=== PATIENT | male | born 1970 | race Caucasian/White ===

== ENCOUNTER 2019-09-14 16:29 | Emergency (ER) | payer OTHER, SELFPAY ==
[2019-09-14 16:36] VITALS: BP 145/89; PULSE 97; RESP 18; TEMP 37.2; O2SAT 97
--- NOTE | 2019-09-14 16:36 | ED.SKABFB ---
HPI - Skin/Abscess/Foreign Bdy General Chief complaint: Skin/Abscess/Foreign Body Stated complaint: boil on buttocks Time Seen by Provider: 09/14/19 16:36 Source: patient and RN notes reviewed Mode of arrival: ambulatory Limitations: no limitations History of Present Illness HPI narrative: Pt is a 49 y/o male who is a nonsmoker/nondrinker that presents to the with c/o skin eruption to lt inner gluteal cheek without ongoing drainage or streaking for about 3 days. He states that he s tried to pop it and only made it bigger. Pt has never had an eruption similar to this in the past. He has a H/o AODM; reports 4/10 pain when sitting down, declines I & D . MD complaint: abscess/boil Onset (ago): day(s) (3) Location: buttocks (lt inner gluteal cheek) Severity scale (1-10): 4 Associated symptoms: denies other symptoms Related Data Home Medications Medication Instructions Recorded Confirmed irbesartan 300 mg tablet 300 mg PO DAILY 05/20/19 09/14/19 loratadine 10 mg tablet 10 mg PO DAILY 05/20/19 09/14/19 lovastatin 40 mg tablet 40 mg PO DAILY 05/20/19 09/14/19 metformin 500 mg tablet,extended 2,000 mg PO DAILY tablet 05/20/19 09/14/19 release 24 hr multivitamin,jl-ukjx-epgidpqm 1 tablet PO DAILY 05/20/19 09/14/19 omeprazole 20 mg capsule,delayed 20 mg PO DAILY 05/20/19 09/14/19 release sildenafil (pulm.hypertension) 20 100 mg PO ONCE tablet 05/20/19 09/14/19 mg tablet valacyclovir 500 mg tablet 500 mg PO DAILY 05/20/19 09/14/19 Allergies Allergy/AdvReac Type Severity Reaction Status Date / Time bupropion AdvReac Unknown Unknown Verified 09/14/19 16:43 Review of Systems Review of Systems: Narrative: General/Constitutional: No weight loss,fever Eyes: N0: Redness,discharge Ears/Nose/Throat: No: Epistaxis,ear discharge Respiratory: Denies: Hemoptysis Gastrointestinal: No Vomiting, Bleeding-rectal Skin: Reports skin eruption to lt inner gluteal cheek with 4/10 pain while sitting PMFSH Past Medical History Medical History Diabetes type 2, controlled GERD (gastroesophageal reflux disease) Hyperlipidemia Hypertension Multiple adenomatous polyps Surgical History Surgical History History of appendectomy Social History Social History Smoking status: Never smoker Alcohol intake: current Comments At time of signature, agree with nursing past medical, surgical, social and family history. There is no relevant family history pertinent to the presenting complaint Exam Narrative: Exam Narrative: General : Obese/ appearing, Well nourished, Conjunctiva clear Ears: Auditory canal normal, TM normal Nose: Rhinorrhea, Mucousal erythema Mouth/Throat: MM moist, supple, No adenopathy Musculoskeletal: Non tender, Normal strength Skin: Warm, Dry; 2cm area of induration gluteal cheek w/o fluctuance, streaking Neurological: A&O x3,, Normal affect Course Vital Signs Vital signs: Vital Signs Temperature 99 F 09/14/19 16:36 Pulse Rate 97 09/14/19 16:36 Respiratory Rate 18 09/14/19 16:36 Blood Pressure 145/89 H 09/14/19 16:36 Pulse Oximetry 97 09/14/19 16:36 Temperature 99 F 09/14/19 16:36 Pulse Rate 97 09/14/19 16:36 Respiratory Rate 18 09/14/19 16:36 Blood Pressure 145/89 H 09/14/19 16:36 Pulse Oximetry 97 09/14/19 16:36 Discharge Plan Discharge Clinical Impression: Folliculitis Patient Disposition: Home, Self-Care Condition: Stable Instructions: Antibiotic Form, MRSA (Methicillin-Resistant Staphylococcus Aureus) (ED), Folliculitis (ED) Additional Instructions: stop clindamycin for diarrhea Prescriptions: New clindamycin HCl 300 mg capsule 300 mg PO Q6H Qty: 30 RF: 0 mupirocin 2 % ointment 1 applic TOPICAL TID Qty: 30 RF: 0 No Action valacyclovir 500 mg tablet 500 mg PO DAILY R
== END 2019-09-14 17:00 | disposition home or self-care (01) ==
PROVIDERS: Emergency Provider Emergency Medicine; PCP Family Medicine
DX: L73.9 Follicular disorder, unspecified (principal); E11.9 Type 2 diabetes mellitus without complications; K21.9 Gastro-esophageal reflux disease without esophagitis; E78.5 Hyperlipidemia, unspecified; I10 Essential (primary) hypertension
CPT/HCPCS: 99213; G0463

== ENCOUNTER 2020-05-05 19:52 | Inpatient (IN) | payer OTHER, SELFPAY ==
--- NOTE | ~2020-05-05 | XR_ITS ---
EXAMINATION: XR chest 1V portable EXAM DATE: 05/10/2020 06:21 INDICATION: COVID-19 pneumonia . TECHNIQUE: Portable AP frontal chest x-ray was obtained. Comparison is made to prior examination from 05/09, 05/07/2020. FINDINGS: There is rather extensive bilateral airspace disease, most likely reaction to acute infecti ous process given history provided. No pneumothorax or pleural effusion. Cardiomediastinal silhouette is normal. There are no osseous abnormalities identified. There is no significant interval change. IMPRESSION: Diffuse acute bilateral airspace disease, clinical correlation. LINE REPAIRER Reviewed, dictated and finalized at location A.
--- NOTE | ~2020-05-05 | XR_ITS ---
EXAMINATION: XR chest 1V portable EXAM DATE: 05/11/2020 06:26 INDICATION: COVID-19 pneumonia. TECHNIQUE: Portable AP frontal chest x-ray was obtained. Comparison is made to prior examination from 05/10, 05/09, 05/07/2020. FINDINGS: There is rather extensive bilateral airspace disease, most likely reaction to acute infecti ous process given history provided. No pneumothorax or pleural effusion. Cardiomediastinal silhouette is normal. There are no osseous abnormalities identified. There is no significant interval change. IMPRESSION: Diffuse acute bilateral airspace disease, clinical correlation. Reviewed, dictated and finalized at location A. S SUPPORT ASSISTANT
--- NOTE | ~2020-05-05 | XR_ITS ---
EXAMINATION: XR chest 1V portable DATE: 05/05/2020 20:30 INDICATION: Shortness of breath. Cough. COVID-19 positive. TECHNIQUE: A single frontal view of the chest was obtained on 2 radiographs. COMPARISON: Chest 2 views 09/27/2017 FINDINGS: There are patchy airspace opacities in all lung zones bilaterally. No pleural effusion or p neumothorax. The heart size is normal. IMPRESSION: 1. Diffuse lung disease, consistent with pneumonia. Reviewed, dictated and finalized at location A. F GRINDER AND SCREENER
--- NOTE | ~2020-05-05 | XR_ITS ---
EXAMINATION: XR chest 1V portable EXAM DATE: 05/09/2020 06:22 INDICATION: Pneumonia. COVID-19 TECHNIQUE: Portable AP frontal chest x-ray was obtained. Comparison is made to prior examination from 05/07/2020. FINDINGS: There is rather extensive bilateral airspace disease, most likely reaction to acute infecti ous process given history provided. No pneumothorax or pleural effusion. Cardiomediastinal silhouette is normal. There are no osseous abnormalities identified. There is no significant interval change. IMPRESSION: Rather extensive acute bilateral airspace disease, clinical correlation. Reviewed, dictated and finalized at location A. ARCH AIDE IMPRESSION: Rather extensive acute bilateral airspace disease, clinical correl ation.
--- NOTE | ~2020-05-05 | XR_ITS ---
EXAMINATION: XR chest 1V portable EXAM DATE: 05/13/2020 06:38 INDICATION: COVID-19 pneumonia . TECHNIQUE: Portable AP frontal chest x-ray was obtained. Comparison is made to prior examination from 05/12, 05/11, 05/10. FINDINGS: There is extensive bilateral ground glass opacities with linear regions of confluence, most likely acute infectious process given history provided. No pneumothorax or pleural effusion. Cardiom ediastinal silhouette is normal. There are no osseous abnormalities identified. There is no significant interval change. IMPRESSION: Diffuse acute bilateral airspace disease, clinical correlation. AND BACK FORGER Reviewed, dictated and finalized at location A.
--- NOTE | ~2020-05-05 | XR_ITS ---
EXAMINATION: XR chest 1V portable EXAM DATE: 05/12/2020 06:10 INDICATION: COVID-19 pneumonia TECHNIQUE: Portable AP frontal chest x-ray was obtained. Comparison is made to prior examination from 05/11. FINDINGS: There is extensive bilateral ground glass opacities with regions of confluence, most likely acute infectious process given history provided. No pneumothorax or pleural effusion. Cardiomediasti nal silhouette is normal. There are no osseous abnormalities identified. There is no significant interval change. IMPRESSION: Diffuse acute bilateral airspace disease, clinical correlation. Reviewed, dictated and finalized at location A. AGE LINER
--- NOTE | ~2020-05-05 | XR_ITS ---
EXAMINATION: XR chest 1V portable INDICATION: COVID 19 pneumonia TECHNIQUE: Portable AP chest at 0818 hours COMPARISON: 05/13/2020 FINDINGS: Diffuse bilateral interstitial and airspace opacities persist without significant change. T here is mild elevation of the right hemidiaphragm. No pleural effusion or pneumothorax is identified. The cardiomediastinal silhouette is stable. IMPRESSION: 1. Stable diffuse lung disease, consistent with pneumonia and/or pulmonary edema and/or acute respira tory distress syndrome (ARDS). Reviewed, dictated and finalized at location A. IFIER IMPRESSION: 1. Stable diffuse lung disease, consistent with pneumonia and/or pulmonary nancy a and/or acute respiratory distress syndrome (ARDS).
--- NOTE | ~2020-05-05 | XR_ITS ---
EXAMINATION: XR chest 1V portable INDICATION: Hypoxia TECHNIQUE: Portable AP chest at 0618 hours COMPARISON: 05/05/2020 FINDINGS: There are patchy airspace opacities in all lung zones which demonstrate interval worsening. There is no pleural effusion or pneumothorax. The cardiomediastinal silhouette is normal. IMPRESSION: 1. Diffuse lung disease with interval worsening, consistent with pneumonia and/or pulmonary edema and /or acute respiratory distress syndrome (ARDS). Reviewed, dictated and finalized at location A. IDENT + PUBLISHER IMPRESSION: 1. Diffuse lung disease with interval worsening, consistent with pneumonia and/ or pulmonary edema and/or acute respiratory distress syndrome (ARDS).
--- NOTE | 2020-05-05 19:54 | ECG_ITS ---
Measurements Intervals [place] Rate: 96 P: 39 TX: 168 QRS: 41 QRSD: 108 T: -5 QT: 355 QTc: 449 Interpretive Statements SINUS RHYTHM NONSPECIFIC T-WAVE ABNORMALITY- INFERIOR LEADS BORDERLINE ECG Electronically Signed On 05-06-2020 6:48:26 CHIEF LOCK OPERATOR by Heath Purvis D.O.
[2020-05-05 19:55] VITALS: BP 166/88; PULSE 99; RESP 15; TEMP 37.4; O2SAT 93
[2020-05-05 20:42] LABS: Basophils Percent Auto 0.1 % (0.2-1.2); Hematocrit 37.7 % (42.0-52.0); Hemoglobin 13.1 g/dL (14.0-18.0); Immature Granulocyte Absolute 0.05 K/mm3 (0.00-0.031); Immature Granulocyte Percent A 0.6 % (0-0.5); Lymphocytes Absolute Auto 0.69 K/mm3 (0.9-3.2); Lymphocytes Percent Auto 8.4 % (18.3-44.2); Mean Corpuscular HGB Conc 34.7 g/dl (32-36); Mean Corpuscular Hemoglobin 30.6 pg (26-34); Mean Corpuscular Volume 88.1 fl (80-100); Mean Platelet Volume 9.3 fl (7.4-10.4); Monocytes Absolute Auto 0.4 K/mm3 (0.1-0.6); Monocytes Percent Auto 4.3 % (2.6-8.5); Neutrophils Absolute Auto 7.1 K/mm3 (1.3-6.7); Neutrophils Percent Auto 86.6 % (45.5-73.1); Platelet Count Result 165 k/mm3 (150-375); Red Blood Count 4.28 M/mm3 (4.6-6.20); Red Cell Distribution Width 12.4 % (11.5-14.5); White Blood Count 8.2 K/mm3 (4.5-10.0)
--- NOTE | 2020-05-05 20:49 | ED.GENADULT ---
HPI - General Adult General Chief complaint: Upper Respiratory Infection Stated complaint: resp distress, covid+ Time Seen by Provider: 05/05/20 19:58 Source: patient Mode of arrival: ambulatory Limitations: no limitations History of Present Illness HPI narrative: 50-year-old with a history of hypertension here with complaints of shortness of breath for past few days. Patient states that he had upper respiratory symptoms l approximately a week ago , and a Covid test 2 days ago which came back positive . Patient states that for the last few hours he has been getting extremely short of breath even with minimal ambulation. He presently denies any fever however he states that few days ago he had a high fever, body aches. He denies any chest pain., Nausea or vomiting. His cough is nonproductive. Patient upon arrival to the ER and SPO2 of 88% Onset (ago): day(s) (2) Severity: moderate Pain Consistency: constant Exacerbating factors: movement Associated symptoms: cough and shortness of breath Related Data Home Medications Medication Instructions Recorded Confirmed multivitamin,po-uddg-bvjbkftb 1 tablet PO DAILY 05/20/19 09/14/19 valacyclovir 500 mg tablet 500 mg PO DAILY 05/20/19 10/20/19 loratadine 10 mg tablet 10 mg PO DAILY PRN 10/20/19 10/20/19 Allergies Allergy/AdvReac Type Severity Reaction Status Date / Time bupropion AdvReac Unknown Unknown Verified 05/05/20 20:00 Review of Systems Review of Systems: All systems reviewed & are unremarkable except as noted in HPI and below Constitutional: Constitutional: Reports as per HPI ENT: Reports as per HPI Cardiovascular: Cardiovascular: Reports as per HPI Respiratory: Respiratory: Reports as per HPI Gastrointestinal: Gastrointestinal: Reports no additional gastrointestinal complaints Musculoskeletal: Musculoskeletal: Reports no additional musculoskeletal complaints [facility] Past Medical History Medical History Abnormal fasting glucose Asymptomatic microscopic hematuria COVID-19 Diabetes type 2, controlled Elevated blood lead level Encounter for prostate cancer screening GERD (gastroesophageal reflux disease) Hyperlipidemia Hypertension Multiple adenomatous polyps Obstructive sleep apnea Surgical History Surgical History History of appendectomy Family History Family History Grandparent Diabetes mellitus Family history of cardiovascular disease Family history of Alzheimer's disease, Onset Age: 82 Family history of dementia Mother Hypertension Patient's mother is in good health Father Family history of elevated blood lipids Social History Social History (Updated 04/26/20 @ 10:53 by Moira Moseley MA) Years smoked: 20 Smoking status: Former smoker ( quit smoking 2014) Tobacco type: cigarettes Smoking end date: 10/29/14 Alcohol intake: current Drinks per week: 3 Substance use: never Gender identity (if verbalized by the patient): Male Exam Narrative: Exam Narrative: GENERAL: Well-appearing, well-nourished, and in no acute distress.anxious HEAD: Normocephalic, atraumatic. EYES: PERRLA and EOMI. NECK: Supple. CHEST: Clear to auscultation. No respiratory distress. HEART: Regular rate and rhythm. No murmur heard. Normal peripheral pulses. ABDOMEN: Soft, nontender, nondistended, normal active bowel sounds. EXTREMITIES: Normal range of motion. No edema. SKIN: Warm, dry, no rash. NEURO: No focal deficits. Alert and oriented x3. PSYCH: Normal mood and affect. Course Course Emergency Course: Inform patient about his lab work, chest x-ray findings. His O2 saturations are 91 to 92% when he is resting. Will admit to the hospital as his SPO2 drops down to 88% with ambulation. I discussed with Dr. Sanderson recommended to start Decadron and and is R remdesivir and Decadron
[2020-05-05 20:51] LABS: INR 0.9; Prothrombin Time 12.8 Seconds (11.1-14.7)
[2020-05-05 20:52] LABS: Partial Thromboplastin Time 27.9 SECONDS (22.3-36.8)
[2020-05-05 20:54] LABS: Lactic Acid Reflex 2.5 mmol/L (0.7-2.1)
[2020-05-05 20:56] LABS: Alanine Aminotransferase 69 U/L (4-50); Alkaline Phosphatase 78 U/L (38-126); Anion Gap 12 mmol/L (8-16); Aspartate Amino Transferase 71 U/L (17-59); Bilirubin,Total 0.6 mg/dL (0.2-1.3); Blood Urea Nitrogen 14 mg/dL (9-20); CRP 2.6 mg/dL (<1.0); Calcium 9.2 mg/dL (8.4-10.2); Carbon Dioxide 22 mmol/L (22-30); Chloride 105 mmol/L (98-107); Estimated CRCL calculation 147 ml/min; Estimated Glomerular Filt Rate > 60; Glucose 371 mg/dL (75-110); Potassium 4.2 mmol/L (3.4-5.0); Sodium 139 mmol/L (137-145)
[2020-05-05 21:05] VITALS: O2SAT 91
[2020-05-05 21:45] VITALS: BP 155/68; PULSE 92; RESP 15; TEMP 36.8; O2SAT 93
[2020-05-05 21:54] VITALS: BP 151/88; PULSE 98; RESP 18; O2SAT 94
--- NOTE | 2020-05-05 22:05 | PC.NURSE ---
This patient, Matthias Smith, was admitted to [facility] Surg Room 329-01. Patient/family oriented to hospital policies and general routines including ID bracelet, bed and alarms, visiting hours, pain management, procedures, bathroom and other care routines, personal items, smoking policy, room service/diet, and visiting hours. Information on how to activate the Rapid Response Team has been discussed. Patient/Family are encouraged to report perceived risks to care and to ask questions if they do not understand what they are told or what they should do.
[2020-05-05 22:15] VITALS: BP 163/75; PULSE 99; RESP 18; TEMP 36.4; O2SAT 94
[2020-05-05 22:25] VITALS: PULSE 99; RESP 18; O2SAT 94
[2020-05-05 22:54] VITALS: BMI 36.5
[2020-05-05] MEDS: SODIUM CHLORIDE 0.9% IV 1,000 ML 75 ML IV CONT (22:54)
[2020-05-05] MEDS: REMDESIVIR 200 MG/NS 250 ML 200 MG/250 ML BAG 250 MG IVPB (22:54)
[2020-05-05 23:39] LABS: Reflex Lactic Acid Yes or No Add Lactic
[2020-05-06] VITALS (10 sets, daily range): BP systolic 129–152; BP diastolic 70–90; PULSE 87–91; RESP 18–20; TEMP 36.4–37; O2SAT 90–94
[2020-05-06 00:13] LABS: Lactic Acid 2.3 mmol/L (0.7-2.1)
--- NOTE | 2020-05-06 00:57 | PM.IMHP ---
H&P: HPI History of Present Illness Date/Time: 05/06/20 00:57 Chief complaint: COVID Pneumonia Narrative: This is a pleasant 50 year old Diabetic male with known history of HTN and GERD who presented to the hospital with increased shortness of breath over the past few days. The patient started to have a cough about 1 week ago and after developing fever the next day he decided to get tested for COVID-19. His COVID-19 test came back positive 2 days ago. Since then he has started to notice that he is getting more short of breath while ambulating and needs to sit down to catch his breath. He denies any known sick contacts and isn't sure how he contracted COVID-19. Tonight the patient complains of body aches, a nonproductive cough, and shortness of breath but denies any nausea, vomiting, chest pain, palpitations, abdominal pain, dysuria, or rectal bleeding. The patient was found to desaturate down to the high 80s when ambulating in the ER. The patient was admitted for further care and treated with antibiotics, steroids, and remdesivir. On my encounter with the patient he is on 2L of oxygen and in no acute distress. Review of Systems Review of Systems: All systems reviewed & are unremarkable except as noted in HPI and below PMFSH Past Medical History Medical History Abnormal fasting glucose Asymptomatic microscopic hematuria COVID-19 Diabetes type 2, controlled Elevated blood lead level Encounter for prostate cancer screening GERD (gastroesophageal reflux disease) Hyperlipidemia Hypertension Multiple adenomatous polyps Obstructive sleep apnea Surgical History Surgical History History of appendectomy Family History Family History Grandparent Diabetes mellitus Family history of cardiovascular disease Family history of Alzheimer's disease, Onset Age: 82 Family history of dementia Mother Hypertension Patient's mother is in good health Father Family history of elevated blood lipids Social History Social History Years smoked: 20 Smoking status: Former smoker Tobacco type: cigarettes Smoking end date: 10/29/14 Alcohol intake: current Drinks per week: 4 Substance use: never Gender identity (if verbalized by the patient): Male Spiritual care concerns: No Meds Home Medications and Allergies Home Medications Medication Instructions Recorded Confirmed Type multivitamin,qt-gtpd-ghgwntno 1 tablet PO DAILY 05/20/19 05/05/20 History loratadine 10 mg tablet 10 mg PO DAILY PRN 10/20/19 05/05/20 History irbesartan 300 mg tablet 300 mg PO DAILY #90 tablet 04/26/20 05/05/20 Rx lovastatin 40 mg tablet 40 mg PO DAILY #90 tablet 04/26/20 05/05/20 Rx metformin 500 mg tablet,extended 2,000 mg PO DAILY #360 tablet 04/26/20 05/05/20 Rx release 24 hr omeprazole 20 mg capsule,delayed 20 mg PO DAILY #90 cap 04/26/20 05/05/20 Rx release sildenafil (pulm.hypertension) 20 100 mg PO ONCE PRN #90 tablet 04/26/20 05/05/20 Rx mg tablet Allergies Allergy/AdvReac Type Severity Reaction Status Date / Time bupropion AdvReac Unknown Hypertensio Verified 05/05/20 22:24 n Vital Signs Vital Signs - 24 hr 05/05/20 19:55 05/05/20 21:05 05/05/20 21:45 Temperature 37.4 C 36.8 C Pulse Rate 99 92 Respiratory Rate 15 15 Blood Pressure 166/88 H 155/68 H Pulse Oximetry 93 91 93 05/05/20 21:54 05/05/20 22:15 05/05/20 22:25 Temperature 36.4 C Pulse Rate 98 99 99 Respiratory Rate 18 18 18 Blood Pressure 151/88 H 163/75 H Pulse Oximetry 94 94 94 Exam Const: General: cooperative, alert, awake and ill appearing Nutritional Appearance: obese Orientation/consciousness: patient oriented x3 HENMT: Head: normal to inspection General nose exam: Normal external nose present Face and
[2020-05-06 06:28] LABS: Basophils Percent Auto 0.1 % (0.2-1.2); Hematocrit 35.9 % (42.0-52.0); Hemoglobin 12.3 g/dL (14.0-18.0); Lymphocytes Absolute Auto 0.87 K/mm3 (0.9-3.2); Lymphocytes Percent Auto 8.6 % (18.3-44.2); Mean Corpuscular HGB Conc 34.3 g/dl (32-36); Mean Corpuscular Hemoglobin 30.4 pg (26-34); Mean Corpuscular Volume 88.6 fl (80-100); Mean Platelet Volume 9.2 fl (7.4-10.4); Monocytes Absolute Auto 0.5 K/mm3 (0.1-0.6); Monocytes Percent Auto 5.1 % (2.6-8.5); Neutrophils Absolute Auto 8.6 K/mm3 (1.3-6.7); Neutrophils Percent Auto 85.2 % (45.5-73.1); Platelet Count Result 171 k/mm3 (150-375); Red Blood Count 4.05 M/mm3 (4.6-6.20); Red Cell Distribution Width 12.4 % (11.5-14.5); White Blood Count 10.1 K/mm3 (4.5-10.0)
[2020-05-06 06:37] LABS: Lactic Acid Reflex 1.7 mmol/L (0.7-2.1)
[2020-05-06 06:37] LABS: Alveolar/Arterial O2 Gradient 222.3 mmHg; Base Excess ABG -3.8 mEq/l (+/-2.0); Device NASAL CANNULA; Fractional Inspired Oxygen 44 %; HCO3 ABG 19.2 mEq/l (22.0-26.0); Modified Allen's Test Pass; Oxygen Content ABG 18.1 %vol (16.0-22.0); Oxygen Saturation ABG 91.2 % (95.0-100.0); Oxyhemoglobin 90.2 % THb (90.0-100.0); PCO2 ABG 29.6 mmHg (35.0-45.0); PO2 ABG 57.7 mmHg (80.0-100.0); PO2 FiO2 Ratio Arterial Blood 1.31 %; Site Drawn LEFT RADIAL; Total Hemoglobin 14.3 g/dL (12.0-18.0)
[2020-05-06 06:42] LABS: Alanine Aminotransferase 73 U/L (4-50); Albumin Level 3.7 g/dL (3.5-5.1); Alkaline Phosphatase 67 U/L (38-126); Anion Gap 10 mmol/L (8-16); Aspartate Amino Transferase 65 U/L (17-59); Bilirubin,Total 0.5 mg/dL (0.2-1.3); Blood Urea Nitrogen 16 mg/dL (9-20); Carbon Dioxide 21 mmol/L (22-30); Chloride 108 mmol/L (98-107); Estimated CRCL calculation 147 ml/min; Estimated Glomerular Filt Rate > 60; Glucose 245 mg/dL (75-110); Potassium 4.1 mmol/L (3.4-5.0); Sodium 139 mmol/L (137-145)
[2020-05-06] MEDS: ALBUTEROL SULFATE (*SP) INHALER 1 PUFF (07:47)
[2020-05-06] MEDS: ALBUTEROL SULFATE (*SP) AEROSOL 1 PUFF 2 PUFF INHALATION ×3 (07:47→19:59)
[2020-05-06] MEDS: DEXAMETHASONE SOD PHOS INJ 4 MG/ML VIAL 6 MG IV PUSH (08:08)
[2020-05-06] MEDS: INSULIN ASPART (*BKC) 100 UNITS/ML SUB-Q ×2 (08:09→12:27)
[2020-05-06] MEDS: metFORMIN HCL XR 500 MG TAB.SR.24H 2000 MG PO (08:11)
[2020-05-06] MEDS: LOVASTATIN 20 MG TABLET 40 MG PO (08:12)
[2020-05-06] MEDS: IRBESARTAN 150 MG TABLET 300 MG PO (08:12)
[2020-05-06] MEDS: LORATADINE 10 MG TABLET PO (08:12)
[2020-05-06] MEDS: THERAPEUTIC MULTIVITAMINS/MINERALS TAB (*BKC) 1 TABLET PO (08:12)
[2020-05-06] MEDS: PANTOPRAZOLE 40 MG TABLET PO (08:12)
[2020-05-06] MEDS: guaiFENesin/DEXTROMETHORPHAN 10 ML UDC PO (08:13)
[2020-05-06 09:05] LABS: Glucose Point of Care 221 (65-105)
[2020-05-06] MEDS: ENOXAPARIN 40 MG/0.4 ML SYRINGE SUB-Q ×2 (11:24→20:05)
[2020-05-06 11:57] LABS: Glucose Point of Care 224 (65-105)
--- NOTE | 2020-05-06 12:22 | PM.IMPN ---
Progress Note: A&P Assessment and Plan (1) Pneumonia due to COVID-19 virus: Code(s): U07.1 - COVID-19; J12.89 - Other viral pneumonia Status: Acute Assessment and Plan: The patient reported symptoms started 04/28. He tested positive for COVID 05/03. Dyspnea worsened. He was hypoxic on presentation to the emergency department and requiring 2 liters initially. He is now on 6.5 liters per nsaal cannula. Continue supplemental oxygen to maintain oxygen saturation of >93% and wean as tolerated. Continue IV antibiotics (started azithromycin outpatient 05/03), dexamethasone (day 09/07 - initiated 05/04 outpatient), remdesivir (day 08/05 - initiated 05/05) bronchodilators, antitussives, mucinex. Sputum culture, pneumococcal antigen, legionella urinary antigen, mycoplasma Ab testing were obtained and are pending. Blood cultures were obtained and are pending. Continue droplet isolation. Add continuous pulse oximetry for closer monitoring of oxygen saturation given increasing oxygen requirements. Monitor acute phase reactants and LFTs closely. (2) Severe sepsis: Code(s): A41.9 - Sepsis, unspecified organism; R65.20 - Severe sepsis without septic shock Status: Acute Assessment and Plan: w/ tachycardia and elevated lactic acid. Source of sepsis is likely secondary to COVID-19. Reflex lactic acid normalized. Continue treatment of COVID-19 as above. Monitor acid-base status. Monitor urine output and hemodynamics. (3) Normocytic anemia: Code(s): D64.9 - Anemia, unspecified Status: Acute Assessment and Plan: Acute vs. chronic. No signs of acute blood loss. Monitor H/H, transfuse prn. Check vitamin B12, folate, iron studies. (4) Elevated lactic acid level: Code(s): R79.89 - Other specified abnormal findings of blood chemistry Status: Resolved Assessment and Plan: Resolved. Likely secondary to sepsis and COVID-19. Reflex lactic acid was normal. (5) Type 2 diabetes mellitus without complication, without long-term current use of insulin: Code(s): E11.9 - Type 2 diabetes mellitus without complications Status: Chronic Assessment and Plan: Blood sugars were reviewed and are acceptable at this time. Monitor closely given dexamethasone therapy. Hold metformin. Continue ACHS glucose monitoring, sliding scale insulin, and hypoglycemia protocol. (6) Essential (primary) hypertension: Code(s): I10 - Essential (primary) hypertension Status: Chronic Assessment and Plan: Blood pressures were elevated yesterday but have improved today. Continue irbesartan. Continue to monitor. (7) Gastro-esophageal reflux disease without esophagitis: Code(s): K21.9 - Gastro-esophageal reflux disease without esophagitis Status: Chronic Assessment and Plan: Continue PPI therapy. (8) Mixed hyperlipidemia: Code(s): E78.2 - Mixed hyperlipidemia Status: Chronic Assessment and Plan: LFTs are very mildly elevated. Will continue lovastatin and monitor CMP daily. Subjective Date/time seen: 05/06/20 12:22 Mr. Smith is a 50 y.o. male with PMH significant for HTN, HLD, T2DM, GERD who is seen in follow-up for COVID-19 pneumonia. He feels like he is breathing a little bit better but he is still short of breath. He got up to walk today and noticed dyspnea on exertion. He is requiring 6.5 liters per nasal cannula. He denies subjective fever and chills. He states he had a lot of coughing initially but cough is more sparse now. He occasionally has dark pearce sputum. He denies hemoptysis. He denies chest pain. He denies leg swelling and calf pain. He notes deep breathing stimulates coughing. He had one loose stool today. He is not having any nausea, vomiting, or diarrhea. Review of Systems Review of Systems: All systems reviewed & are unremarkable except as noted in HPI and below Exam Narrative: Exam Narrati
[2020-05-06 17:43] LABS: Glucose Point of Care 188 (65-105)
[2020-05-06 21:09] LABS: Glucose Point of Care 183 (65-105)
[2020-05-06] MEDS: REMDESIVIR 100 MG/NS 250 ML 100 MG/250 ML BAG 250 MG IVPB (22:00)
[2020-05-07] VITALS (23 sets, daily range): BP systolic 128–150; BP diastolic 84–100; PULSE 78–97; RESP 15–94; TEMP 36.2–36.8; O2SAT 90–98
[2020-05-07 01:02] LABS: Alveolar/Arterial O2 Gradient 369.4 mmHg; Base Excess ABG -2.9 mEq/l (+/-2.0); Carboxyhemoglobin 0.3 % THb (0-2.0); Fractional Inspired Oxygen 64 %; HCO3 ABG 20.3 mEq/l (22.0-26.0); Methemoglobin ABG 0.4 %THb (0-1.5); Oxygen Content ABG 16.1 %vol (16.0-22.0); Oxyhemoglobin 86.2 % THb (90.0-100.0); PO2 ABG 53.1 mmHg (80.0-100.0); PO2 FiO2 Ratio Arterial Blood 0.83 %; Reduced Hemoglobin 13.1 %THb (0-5.0); Total Hemoglobin 13.3 g/dL (12.0-18.0); pH ABG 7.435 (7.350-7.450)
[2020-05-07 01:04] LABS: Device HIGH FLOW NASAL CANN; Modified Allen's Test Pass; Site Drawn LEFT RADIAL
--- NOTE | 2020-05-07 02:31 | PC.NURSE ---
This patient, Matthias Smith, was received from 3rd med/surg on 05/07/20 at 0145. Patient/family oriented to unit policies and routines. Report received from Didi VILLAFUERTE.
--- NOTE | 2020-05-07 03:13 | PC.NURSE ---
This patient, Matthias Smith, was transferred to [ICU ] on 05/07/20 at 0145. Personal belongings sent with patient. Report given to [Ana M]. Appropriate documentation sent with patient.
[2020-05-07 04:58] LABS: Basophils Percent Auto 0.1 % (0.2-1.2); Hematocrit 35.8 % (42.0-52.0); Hemoglobin 12.4 g/dL (14.0-18.0); Immature Granulocyte Absolute 0.11 K/mm3 (0.00-0.031); Immature Granulocyte Percent A 0.9 % (0-0.5); Lymphocytes Absolute Auto 1.25 K/mm3 (0.9-3.2); Lymphocytes Percent Auto 10.7 % (18.3-44.2); Mean Corpuscular HGB Conc 34.6 g/dl (32-36); Mean Corpuscular Hemoglobin 29.7 pg (26-34); Mean Corpuscular Volume 85.9 fl (80-100); Mean Platelet Volume 10.3 fl (7.4-10.4); Monocytes Absolute Auto 0.7 K/mm3 (0.1-0.6); Monocytes Percent Auto 5.6 % (2.6-8.5); Neutrophils Absolute Auto 9.7 K/mm3 (1.3-6.7); Neutrophils Percent Auto 82.7 % (45.5-73.1); Platelet Count Result 151 k/mm3 (150-375); Red Blood Count 4.17 M/mm3 (4.6-6.20); Red Cell Distribution Width 12.4 % (11.5-14.5); White Blood Count 11.7 K/mm3 (4.5-10.0)
[2020-05-07 06:46] LABS: Albumin Level 3.6 g/dL (3.5-5.1); Bilirubin,Total 0.6 mg/dL (0.2-1.3); CRP 2.8 mg/dL (<1.0); Carbon Dioxide 22 mmol/L (22-30); Estimated CRCL calculation 147 ml/min; Estimated Glomerular Filt Rate > 60
[2020-05-07 07:17] LABS: Alanine Aminotransferase 64 U/L (4-50); Alkaline Phosphatase 72 U/L (38-126); Anion Gap 10 mmol/L (8-16); Aspartate Amino Transferase 50 U/L (17-59); Blood Urea Nitrogen 20 mg/dL (9-20); Calcium 9.3 mg/dL (8.4-10.2); Chloride 105 mmol/L (98-107); Creatine Kinase 139 U/L (55-170); Glucose 168 mg/dL (75-110); Lactate Dehydrogenase 1182 U/L (313-618); Potassium 3.9 mmol/L (3.4-5.0); Sodium 137 mmol/L (137-145)
[2020-05-07] MEDS: DEXAMETHASONE SOD PHOS INJ 4 MG/ML VIAL 6 MG IV PUSH (08:45)
[2020-05-07] MEDS: ALBUTEROL SULFATE (*SP) AEROSOL 1 PUFF 2 PUFF INHALATION ×4 (09:03→21:05)
[2020-05-07 09:38] LABS: Glucose Point of Care 169 (65-105)
[2020-05-07] MEDS: ENOXAPARIN 40 MG/0.4 ML SYRINGE SUB-Q ×2 (10:53→20:22)
[2020-05-07] MEDS: ZINC SULFATE 220 MG CAPSULE PO (10:53)
[2020-05-07] MEDS: SACCHAROMYCES BOULARDII 250 MG CAPSULE PO ×2 (10:53→17:06)
[2020-05-07] MEDS: LOVASTATIN 20 MG TABLET 40 MG PO (10:54)
[2020-05-07] MEDS: ASCORBIC ACID 250 MG TABLET PO (10:54)
[2020-05-07] MEDS: CHOLECALCIFEROL 1,000 UNITS TABLET 1000 UNITS PO (10:54)
[2020-05-07] MEDS: IRBESARTAN 150 MG TABLET 300 MG PO (10:54)
[2020-05-07] MEDS: THERAPEUTIC MULTIVITAMINS/MINERALS TAB (*BKC) 1 TABLET PO (10:55)
[2020-05-07] MEDS: PANTOPRAZOLE 40 MG TABLET PO (10:55)
[2020-05-07] MEDS: INSULIN ASPART (*BKC) 100 UNITS/ML SUB-Q ×2 (12:37→17:06)
[2020-05-07 12:40] LABS: Glucose Point of Care 207 (65-105)
[2020-05-07] MEDS: SALINE 0.65% NAS SOLN 44 ML BTL 1 SPRAY NASAL (15:00)
[2020-05-07 17:32] LABS: Glucose Point of Care 220 (65-105)
--- NOTE | 2020-05-07 17:51 | PM.IMPN ---
Progress Note: A&P Assessment and Plan (1) Pneumonia due to COVID-19 virus: Code(s): U07.1 - COVID-19; J12.89 - Other viral pneumonia Status: Acute Assessment and Plan: The patient reported symptoms started 04/28. He tested positive for COVID 05/03. Dyspnea worsened. He was hypoxic on presentation to the emergency department and requiring 2 liters initially. He is now on 6.5 liters per nsaal cannula. Continue supplemental oxygen to maintain oxygen saturation of >93% and wean as tolerated. Continue IV antibiotics (started azithromycin outpatient 05/03), dexamethasone (day 10/08 - initiated 05/04 outpatient), remdesivir (day 09/02 - initiated 05/05) bronchodilators, antitussives, mucinex. Sputum culture, pneumococcal antigen, legionella urinary antigen, mycoplasma Ab testing were obtained and are pending. Blood cultures were obtained and are pending. Continue droplet isolation. Add continuous pulse oximetry for closer monitoring of oxygen saturation given increasing oxygen requirements. Monitor acute phase reactants and LFTs closely. 05/07/20 17:51 patient with COVID pneumonia is feeling little better compared to when he arrived, initially patient was requiring 2 L of oxygen however his symptoms are worsening requiring high-flow oxygen, patient was started on dexamethasone and rendesivir, will continue to monitor the patient if patient's symptoms get worsen and desaturating on high-flow oxygen, will consult account development representative and further recommendation to follow, patient has not any fever, currently denies any fever or chills (2) Severe sepsis: Code(s): A41.9 - Sepsis, unspecified organism; R65.20 - Severe sepsis without septic shock Status: Acute Assessment and Plan: w/ tachycardia and elevated lactic acid. Source of sepsis is likely secondary to COVID-19. Reflex lactic acid normalized. Continue treatment of COVID-19 as above. Monitor acid-base status. Monitor urine output and hemodynamics. (3) Normocytic anemia: Code(s): D64.9 - Anemia, unspecified Status: Acute Assessment and Plan: Acute vs. chronic. No signs of acute blood loss. Monitor H/H, transfuse prn. Check vitamin B12, folate, iron studies. (4) Elevated lactic acid level: Code(s): R79.89 - Other specified abnormal findings of blood chemistry Status: Resolved Assessment and Plan: Resolved. Likely secondary to sepsis and COVID-19. Reflex lactic acid was normal. (5) Type 2 diabetes mellitus without complication, without long-term current use of insulin: Code(s): E11.9 - Type 2 diabetes mellitus without complications Status: Chronic Assessment and Plan: Blood sugars were reviewed and are acceptable at this time. Monitor closely given dexamethasone therapy. Hold metformin. Continue ACHS glucose monitoring, sliding scale insulin, and hypoglycemia protocol. (6) Essential (primary) hypertension: Code(s): I10 - Essential (primary) hypertension Status: Chronic Assessment and Plan: Blood pressures were elevated yesterday but have improved today. Continue irbesartan. Continue to monitor. (7) Gastro-esophageal reflux disease without esophagitis: Code(s): K21.9 - Gastro-esophageal reflux disease without esophagitis Status: Chronic Assessment and Plan: Continue PPI therapy. (8) Mixed hyperlipidemia: Code(s): E78.2 - Mixed hyperlipidemia Status: Chronic Assessment and Plan: LFTs are very mildly elevated. Will continue lovastatin and monitor CMP daily. Subjective Date/time seen: 05/07/20 17:51 patient with COVID pneumonia is feeling little better compared to when he arrived, initially patient was requiring 2 L of oxygen however his symptoms are worsening requiring high-flow oxygen, patient was started on dexamethasone and rendesivir, will continue to monitor the patient if patient's symptoms get worsen and desatur
--- NOTE | 2020-05-07 20:56 | PC.NURSE ---
Spoke with Dr Poon and Dr Saini; due to patient being covid positive and high oxygen requirements (60L 80%) he will be made ICU status.
[2020-05-07] MEDS: REMDESIVIR 100 MG/NS 250 ML 100 MG/250 ML BAG 250 MG IVPB (22:00)
[2020-05-07 22:58] LABS: Glucose Point of Care 206 (65-105)
[2020-05-08] VITALS (16 sets, daily range): BP systolic 128–168; BP diastolic 80–101; PULSE 63–97; RESP 16–22; TEMP 36.4–36.8; O2SAT 90–99
[2020-05-08 04:01] LABS: Hematocrit 35.7 % (42.0-52.0); Hemoglobin 12.5 g/dL (14.0-18.0); Mean Corpuscular Hemoglobin 30.6 pg (26-34); Mean Corpuscular Volume 87.5 fl (80-100); Mean Platelet Volume 9.3 fl (7.4-10.4); Platelet Count Result 208 k/mm3 (150-375); Red Blood Count 4.08 M/mm3 (4.6-6.20); Red Cell Distribution Width 12.4 % (11.5-14.5); White Blood Count 12.9 K/mm3 (4.5-10.0)
[2020-05-08 04:44] LABS: Alanine Aminotransferase 55 U/L (4-50); Albumin Level 3.5 g/dL (3.5-5.1); Alkaline Phosphatase 75 U/L (38-126); Anion Gap 7 mmol/L (8-16); Aspartate Amino Transferase 38 U/L (17-59); Bilirubin,Total 0.8 mg/dL (0.2-1.3); Blood Urea Nitrogen 19 mg/dL (9-20); CRP 5.8 mg/dL (<1.0); Calcium 8.9 mg/dL (8.4-10.2); Carbon Dioxide 28 mmol/L (22-30); Chloride 102 mmol/L (98-107); Estimated CRCL calculation 132 ml/min; Estimated Glomerular Filt Rate > 60; Glucose 179 mg/dL (75-110); Potassium 3.9 mmol/L (3.4-5.0); Sodium 137 mmol/L (137-145)
[2020-05-08] MEDS: DEXAMETHASONE SOD PHOS INJ 4 MG/ML VIAL 6 MG IV PUSH (07:39)
[2020-05-08] MEDS: ALBUTEROL SULFATE (*SP) AEROSOL 1 PUFF 2 PUFF INHALATION ×5 (07:56→20:39)
[2020-05-08 08:24] LABS: NT Pro B Type Natriuretic Pept 170 PG/ML (5-100)
[2020-05-08] MEDS: IRBESARTAN 150 MG TABLET 300 MG PO (08:51)
[2020-05-08] MEDS: ZINC SULFATE 220 MG CAPSULE PO (08:51)
[2020-05-08] MEDS: ASCORBIC ACID 250 MG TABLET PO (08:51)
[2020-05-08] MEDS: ENOXAPARIN 40 MG/0.4 ML SYRINGE SUB-Q ×2 (08:51→20:16)
[2020-05-08] MEDS: PANTOPRAZOLE 40 MG TABLET PO (08:51)
[2020-05-08] MEDS: THERAPEUTIC MULTIVITAMINS/MINERALS TAB (*BKC) 1 TABLET PO (08:51)
[2020-05-08] MEDS: SACCHAROMYCES BOULARDII 250 MG CAPSULE PO ×2 (08:51→17:30)
[2020-05-08] MEDS: LOVASTATIN 20 MG TABLET 40 MG PO (08:51)
[2020-05-08] MEDS: CHOLECALCIFEROL 1,000 UNITS TABLET 1000 UNITS PO (08:51)
[2020-05-08] MEDS: guaiFENesin/DEXTROMETHORPHAN 10 ML UDC PO (08:51)
--- NOTE | 2020-05-08 10:38 | WPDCNINT ---
Assessment and Plan Assessment and plan (1) Acute respiratory failure: Code(s): J96.00 - Acute respiratory failure, unspecified whether with hypoxia or hypercapnia Status: Acute Assessment and Plan: Acute Respiratory failure secondary to COVID-19 pneumonia patient currently on Airvo 80% FiO2 and 60L flow. may need intubation if continues to worsen CXR shows Diffuse lung disease with interval worsening, consistent with pneumonia and/or pulmonary edema and/or acute respiratory distress syndrome (ARDS). Bronchodilators Patient is in Airborne, Droplet and Contact Isolation Continue antiobiotics for empiric bacterial coverage monitor inflammatory markers patient also on vitamin C vitamin D and Zinc continue dexamethasone (initiated 05/04 outpatient), remdesivir (initiated 05/05) Discussed benefits and risks of convalscent plasma therapy for COVID-19. I explained patient the risks of donor plasma which includes allergic reaction, transfusion reaction, possible transmission of infections like Hepatitis and HIV and even . Explained that donor plasma has shown benefit in some studies but is not a proven therapy. Patient understands the risks, is agreeable to proceed and gave his informed consent. I have placed order for 1 unit of convalscent plasma I encouraged patient to lay prone as much as possible incentive spirometry and up in chair to minimize atelectasis Lasix IV x1 as patient fairly positive on his balance (2) Pneumonia due to COVID-19 virus: Code(s): U07.1 - COVID-19; J12.89 - Other viral pneumonia Status: Acute (3) Normocytic anemia: Code(s): D64.9 - Anemia, unspecified Status: Acute Assessment and Plan: Acute vs. chronic. patient does complain of hemorrhoids and small amount of blood in his stool infrequently Monitor H/H stable at this time (4) Type 2 diabetes mellitus without complication, without long-term current use of insulin: Code(s): E11.9 - Type 2 diabetes mellitus without complications Status: Chronic Assessment and Plan: continue sliding scale may need Lantus (5) Essential (primary) hypertension: Code(s): I10 - Essential (primary) hypertension Status: Chronic Assessment and Plan: controlled on irbesartan. Continue to monitor. (6) Gastro-esophageal reflux disease without esophagitis: Code(s): K21.9 - Gastro-esophageal reflux disease without esophagitis Status: Chronic Assessment and Plan: Continue PPI therapy. (7) Mixed hyperlipidemia: Code(s): E78.2 - Mixed hyperlipidemia Status: Chronic Assessment and Plan: LFTs are very mildly elevated. Will continue lovastatin and monitor levels improving Additional Plan DVT prophylaxis - intermediate dose Lovenox Stress ulcer prophylaxis - PPI Nutrition - diabetic that Code Status - patient wishes to be Full Code discussed with Dr. Bush Total Critical Care Time - 35 minutes Due to a high probability of clinically significant, life threatening deterioration, the patient required my highest level of preparedness to intervene emergently and I personally spent this critical care time directly and personally managing the patient. This critical care time included obtaining a history; examining the patient; pulse oximetry; ordering and review of studies; arranging urgent treatment with development of a management plan; evaluation of patient's response to treatment; frequent reassessment; and discussions with other providers. It was exclusive of separately billable procedures and treating other patients and teaching time. Please see Assessment and Plan section and the rest of the note for further information on patient assessment and treatment [employer] Consult Note Consult date: 05/08/20 Time Seen: 07:15 HPI: Matthias Smith is a 50 year old male Review of Systems Review of Systems: A
[2020-05-08 11:06] LABS: Glucose Point of Care 158 (65-105)
[2020-05-08] MEDS: FUROSEMIDE INJ 40 MG/4 ML VIAL IV PUSH (11:49)
[2020-05-08] MEDS: INSULIN ASPART (*BKC) 100 UNITS/ML SUB-Q ×2 (12:41→17:30)
[2020-05-08 13:35] LABS: Glucose Point of Care 255 (65-105)
[2020-05-08 15:53] LABS: Pneumococcal Antigen Urine Not Detected (Not Detected)
--- NOTE | 2020-05-08 16:15 | PM.IMPN ---
Progress Note: A&P Assessment and Plan (1) Pneumonia due to COVID-19 virus: Code(s): U07.1 - COVID-19; J12.89 - Other viral pneumonia Status: Acute Assessment and Plan: The patient reported symptoms started 04/28. He tested positive for COVID 05/03. Dyspnea worsened. He was hypoxic on presentation to the emergency department and requiring 2 liters initially. He is now on 6.5 liters per nsaal cannula. Continue supplemental oxygen to maintain oxygen saturation of >93% and wean as tolerated. Continue IV antibiotics (started azithromycin outpatient 05/03), dexamethasone (day 09/07 - initiated 05/04 outpatient), remdesivir (day 08/05 - initiated 05/05) bronchodilators, antitussives, mucinex. Sputum culture, pneumococcal antigen, legionella urinary antigen, mycoplasma Ab testing were obtained and are pending. Blood cultures were obtained and are pending. Continue droplet isolation. Add continuous pulse oximetry for closer monitoring of oxygen saturation given increasing oxygen requirements. Monitor acute phase reactants and LFTs closely. (2) Severe sepsis: Code(s): A41.9 - Sepsis, unspecified organism; R65.20 - Severe sepsis without septic shock Status: Acute Assessment and Plan: w/ tachycardia and elevated lactic acid. Source of sepsis is likely secondary to COVID-19. Reflex lactic acid normalized. Continue treatment of COVID-19 as above. Monitor acid-base status. Monitor urine output and hemodynamics. (3) Normocytic anemia: Code(s): D64.9 - Anemia, unspecified Status: Acute Assessment and Plan: Acute vs. chronic. No signs of acute blood loss. Monitor H/H, transfuse prn. Check vitamin B12, folate, iron studies. (4) Elevated lactic acid level: Code(s): R79.89 - Other specified abnormal findings of blood chemistry Status: Resolved Assessment and Plan: Resolved. Likely secondary to sepsis and COVID-19. Reflex lactic acid was normal. (5) Type 2 diabetes mellitus without complication, without long-term current use of insulin: Code(s): E11.9 - Type 2 diabetes mellitus without complications Status: Chronic Assessment and Plan: Blood sugars were reviewed and are acceptable at this time. Monitor closely given dexamethasone therapy. Hold metformin. Continue ACHS glucose monitoring, sliding scale insulin, and hypoglycemia protocol. (6) Essential (primary) hypertension: Code(s): I10 - Essential (primary) hypertension Status: Chronic Assessment and Plan: Blood pressures were elevated yesterday but have improved today. Continue irbesartan. Continue to monitor. (7) Gastro-esophageal reflux disease without esophagitis: Code(s): K21.9 - Gastro-esophageal reflux disease without esophagitis Status: Chronic Assessment and Plan: Continue PPI therapy. (8) Mixed hyperlipidemia: Code(s): E78.2 - Mixed hyperlipidemia Status: Chronic Assessment and Plan: LFTs are very mildly elevated. Will continue lovastatin and monitor CMP daily. Subjective Date/time seen: 05/08/20 16:15 patient with COVID pneumonia is feeling little better compared to when he arrived, initially patient was requiring 2 L of oxygen however his symptoms were worsening requiring high-flow oxygen, patient was started on dexamethasone and rendesivir, today on 05/08 patient was desaturating he was seen by insurance verify rep after discussion risk and benefit patient was started convalscent plasma therapy for COVID-19, I saw him earlier he was sitting in the chair and appears comfortable on high-flow nasal cannula, did rib in back and spoke to him over the phone, patient states feeling better complaint of being short of breath. Review of Systems Review of Systems: All systems reviewed & are unremarkable except as noted in HPI and below Exam Narrative: Exam Narrative: Patient is comfortable, NAD high-flow oxygen
[2020-05-08 18:53] LABS: Glucose Point of Care 253 (65-105)
[2020-05-08] MEDS: REMDESIVIR 100 MG/NS 250 ML 100 MG/250 ML BAG 250 MG IVPB (20:50)
[2020-05-08 22:09] LABS: Glucose Point of Care 240 (65-105)
[2020-05-09] VITALS (18 sets, daily range): BP systolic 123–136; BP diastolic 71–97; PULSE 82–110; RESP 12–30; TEMP 35.6–36.7; O2SAT 89–99
[2020-05-09 06:04] LABS: Hematocrit 37.4 % (42.0-52.0); Hemoglobin 12.8 g/dL (14.0-18.0); Mean Corpuscular HGB Conc 34.2 g/dl (32-36); Mean Corpuscular Hemoglobin 29.4 pg (26-34); Mean Platelet Volume 9.1 fl (7.4-10.4); Platelet Count Result 272 k/mm3 (150-375); Red Blood Count 4.35 M/mm3 (4.6-6.20); Red Cell Distribution Width 12.1 % (11.5-14.5)
[2020-05-09 06:21] LABS: Alanine Aminotransferase 48 U/L (4-50); Albumin Level 3.5 g/dL (3.5-5.1); Alkaline Phosphatase 81 U/L (38-126); Anion Gap 7 mmol/L (8-16); Aspartate Amino Transferase 30 U/L (17-59); Bilirubin,Total 0.9 mg/dL (0.2-1.3); Blood Urea Nitrogen 21 mg/dL (9-20); CRP 7.8 mg/dL (<1.0); Calcium 9.1 mg/dL (8.4-10.2); Carbon Dioxide 28 mmol/L (22-30); Chloride 101 mmol/L (98-107); Estimated CRCL calculation 133 ml/min; Estimated Glomerular Filt Rate > 60; Glucose 149 mg/dL (75-110); Potassium 3.6 mmol/L (3.4-5.0); Sodium 136 mmol/L (137-145)
[2020-05-09] MEDS: ALBUTEROL SULFATE (*SP) AEROSOL 1 PUFF 2 PUFF INHALATION ×4 (08:00→20:22)
[2020-05-09] MEDS: ENOXAPARIN 40 MG/0.4 ML SYRINGE SUB-Q ×2 (08:05→21:12)
[2020-05-09] MEDS: DEXAMETHASONE SOD PHOS INJ 4 MG/ML VIAL 6 MG IV PUSH (08:05)
[2020-05-09] MEDS: ASCORBIC ACID 250 MG TABLET PO (08:06)
[2020-05-09] MEDS: PANTOPRAZOLE 40 MG TABLET PO (08:07)
[2020-05-09] MEDS: CHOLECALCIFEROL 1,000 UNITS TABLET 1000 UNITS PO (08:07)
[2020-05-09] MEDS: LOVASTATIN 20 MG TABLET 40 MG PO (08:07)
[2020-05-09] MEDS: ZINC SULFATE 220 MG CAPSULE PO (08:07)
[2020-05-09] MEDS: SACCHAROMYCES BOULARDII 250 MG CAPSULE PO ×2 (08:08→17:13)
[2020-05-09] MEDS: IRBESARTAN 150 MG TABLET 300 MG PO (08:09)
[2020-05-09 09:44] LABS: Glucose Point of Care 147 (65-105)
[2020-05-09] MEDS: INSULIN ASPART (*BKC) 100 UNITS/ML SUB-Q ×2 (12:01→17:13)
[2020-05-09] MEDS: THERAPEUTIC MULTIVITAMINS/MINERALS TAB (*BKC) 1 TABLET PO (12:02)
[2020-05-09 12:32] LABS: Glucose Point of Care 211 (65-105)
--- NOTE | 2020-05-09 15:53 | PM.IMPN ---
Progress Note: A&P Assessment and Plan (1) Pneumonia due to COVID-19 virus: Code(s): U07.1 - COVID-19; J12.89 - Other viral pneumonia Status: Acute Assessment and Plan: The patient reported symptoms started 04/28. He tested positive for COVID 05/03. Dyspnea worsened. He was hypoxic on presentation to the emergency department and requiring 2 liters initially. He is now on 6.5 liters per nsaal cannula. Continue supplemental oxygen to maintain oxygen saturation of >93% and wean as tolerated. Continue IV antibiotics (started azithromycin outpatient 05/03), dexamethasone (day 09/07 - initiated 05/04 outpatient), remdesivir (day 08/05 - initiated 05/05) bronchodilators, antitussives, mucinex. Sputum culture, pneumococcal antigen, legionella urinary antigen, mycoplasma Ab testing were obtained and are pending. Blood cultures were obtained and are pending. Continue droplet isolation. Add continuous pulse oximetry for closer monitoring of oxygen saturation given increasing oxygen requirements. Monitor acute phase reactants and LFTs closely. on 05/08 patient oxygen saturation was decreasing link trainer was consulted continue dexamethasone and remedesivr recommended the patient will benefits from convalscent plasma therapy for COVID-19. after discussing with the patient risk and benefit the treatment was ordered, today patient stated is feeling better still has not received convalscent plasma, most likely later today, spoke with link trainer patient is clinically stable and maintaining his oxygen saturation is a current oxygen level, appreciate link trainer. (2) Severe sepsis: Code(s): A41.9 - Sepsis, unspecified organism; R65.20 - Severe sepsis without septic shock Status: Acute Assessment and Plan: w/ tachycardia and elevated lactic acid. Source of sepsis is likely secondary to COVID-19. Reflex lactic acid normalized. Continue treatment of COVID-19 as above. Monitor acid-base status. Monitor urine output and hemodynamics. (3) Normocytic anemia: Code(s): D64.9 - Anemia, unspecified Status: Acute Assessment and Plan: Acute vs. chronic. No signs of acute blood loss. Monitor H/H, transfuse prn. Check vitamin B12, folate, iron studies. (4) Elevated lactic acid level: Code(s): R79.89 - Other specified abnormal findings of blood chemistry Status: Resolved Assessment and Plan: Resolved. Likely secondary to sepsis and COVID-19. Reflex lactic acid was normal. (5) Type 2 diabetes mellitus without complication, without long-term current use of insulin: Code(s): E11.9 - Type 2 diabetes mellitus without complications Status: Chronic Assessment and Plan: Blood sugars were reviewed and are acceptable at this time. Monitor closely given dexamethasone therapy. Hold metformin. Continue ACHS glucose monitoring, sliding scale insulin, and hypoglycemia protocol. (6) Essential (primary) hypertension: Code(s): I10 - Essential (primary) hypertension Status: Chronic Assessment and Plan: Blood pressures were elevated yesterday but have improved today. Continue irbesartan. Continue to monitor. (7) Gastro-esophageal reflux disease without esophagitis: Code(s): K21.9 - Gastro-esophageal reflux disease without esophagitis Status: Chronic Assessment and Plan: Continue PPI therapy. (8) Mixed hyperlipidemia: Code(s): E78.2 - Mixed hyperlipidemia Status: Chronic Assessment and Plan: LFTs are very mildly elevated. Will continue lovastatin and monitor CMP daily. Subjective Date/time seen: 05/09/20 15:53 The patient reported symptoms started 04/28. He tested positive for COVID 3. Dyspnea worsened. He was hypoxic on presentation to the emergency department and requiring 2 liters initially. He is now on 6.5 liters per nsaal cannula. Continue supplemental oxygen to maintain oxygen saturation of >93%
--- NOTE | 2020-05-09 15:56 | WPDINTPN ---
Progress Note: A&P Assessment and Plan (1) Acute respiratory failure: Code(s): J96.00 - Acute respiratory failure, unspecified whether with hypoxia or hypercapnia Status: Acute Assessment and Plan: Acute Respiratory failure secondary to COVID-19 pneumonia patient currently on Airvo 80% FiO2 and 60L flow. may need intubation if continues to worsen CXR shows Diffuse lung disease with interval worsening, consistent with pneumonia and/or pulmonary edema and/or acute respiratory distress syndrome (ARDS). Bronchodilators continue dexamethasone (initiated 05/04 outpatient), remdesivir (initiated 05/05) Discussed benefits and risks of convalscent plasma therapy for COVID-19. I explained patient the risks of donor plasma which includes allergic reaction, transfusion reaction, possible transmission of infections like Hepatitis and HIV and even . Explained that donor plasma has shown benefit in some studies but is not a proven therapy. Patient understands the risks, is agreeable to proceed and gave his informed consent. - patient to receive 1 unit of plasma today - also discussed with patient regarding sleeping in a prone position as much as possible to which he stated he was going to try - patient is forming incentive spirometry and sitting up in chair as much as possible (2) Pneumonia due to COVID-19 virus: Code(s): U07.1 - COVID-19; J12.89 - Other viral pneumonia Status: Acute Assessment and Plan: Patient is in Airborne, Droplet and Contact Isolation - Continue antiobiotics for empiric bacterial coverage - monitor inflammatory markers - continue vitamin C vitamin D and sitting (3) Normocytic anemia: Code(s): D64.9 - Anemia, unspecified Status: Acute Assessment and Plan: Acute vs. chronic. patient does complain of hemorrhoids and small amount of blood in his stool infrequently Monitor H/H stable at this time (4) Type 2 diabetes mellitus without complication, without long-term current use of insulin: Code(s): E11.9 - Type 2 diabetes mellitus without complications Status: Chronic Assessment and Plan: continue sliding scale may need Lantus (5) Essential (primary) hypertension: Code(s): I10 - Essential (primary) hypertension Status: Chronic Assessment and Plan: controlled on irbesartan. Continue to monitor. (6) Gastro-esophageal reflux disease without esophagitis: Code(s): K21.9 - Gastro-esophageal reflux disease without esophagitis Status: Chronic Assessment and Plan: Continue PPI therapy. (7) Mixed hyperlipidemia: Code(s): E78.2 - Mixed hyperlipidemia Status: Chronic Assessment and Plan: LFTs are very mildly elevated. Will continue lovastatin and monitor levels improving Additional Plan DVT prophylaxis - intermediate dose Lovenox Stress ulcer prophylaxis - PPI Nutrition - diabetic that Code Status - patient wishes to be Full Code discussed with Dr. Bush Total Critical Care Time - 34 minutes Due to a high probability of clinically significant, life threatening deterioration, the patient required my highest level of preparedness to intervene emergently and I personally spent this critical care time directly and personally managing the patient. This critical care time included obtaining a history; examining the patient; pulse oximetry; ordering and review of studies; arranging urgent treatment with development of a management plan; evaluation of patient's response to treatment; frequent reassessment; and discussions with other providers. It was exclusive of separately billable procedures and treating other patients and teaching time. Please see Assessment and Plan section and the rest of the note for further information on patient assessment and treatment Subjective Date/time seen: 05/09/20 15:56 Interval history: 50 year old Diabetic male with
[2020-05-09] MEDS: SODIUM CHLORIDE 0.9% IV 250 ML 30 ML IV CONT (16:57)
[2020-05-09 18:10] LABS: Glucose Point of Care 260 (65-105)
[2020-05-09] MEDS: REMDESIVIR 100 MG/NS 250 ML 100 MG/250 ML BAG 250 MG IVPB (21:30)
[2020-05-10] VITALS (15 sets, daily range): BP systolic 112–134; BP diastolic 68–99; PULSE 79–112; RESP 16–28; TEMP 35.7–36.4; O2SAT 90–94
[2020-05-10 04:56] LABS: Hematocrit 35.2 % (42.0-52.0); Hemoglobin 12.3 g/dL (14.0-18.0); Mean Corpuscular HGB Conc 34.9 g/dl (32-36); Mean Corpuscular Hemoglobin 30.2 pg (26-34); Mean Corpuscular Volume 86.5 fl (80-100); Platelet Count Result 263 k/mm3 (150-375); Red Blood Count 4.07 M/mm3 (4.6-6.20); Red Cell Distribution Width 12.1 % (11.5-14.5); White Blood Count 14.3 K/mm3 (4.5-10.0)
[2020-05-10 05:13] LABS: D Dimer 0.88 ug/mL (<0.48)
[2020-05-10 05:17] LABS: Alanine Aminotransferase 52 U/L (4-50); Albumin Level 3.3 g/dL (3.5-5.1); Alkaline Phosphatase 82 U/L (38-126); Anion Gap 8 mmol/L (8-16); Aspartate Amino Transferase 34 U/L (17-59); Bilirubin,Total 0.9 mg/dL (0.2-1.3); Blood Urea Nitrogen 19 mg/dL (9-20); CRP 8.9 mg/dL (<1.0); Calcium 8.8 mg/dL (8.4-10.2); Carbon Dioxide 26 mmol/L (22-30); Chloride 102 mmol/L (98-107); Estimated CRCL calculation 149 ml/min; Estimated Glomerular Filt Rate > 60; Glucose 147 mg/dL (75-110); Lactate Dehydrogenase 1125 U/L (313-618); Magnesium 2.1 mg/dL (1.6-2.3); Phosphorus 3.6 mg/dL (2.5-4.5); Potassium 3.7 mmol/L (3.4-5.0); Sodium 136 mmol/L (137-145)
[2020-05-10] MEDS: ALBUTEROL SULFATE (*SP) AEROSOL 1 PUFF 2 PUFF INHALATION ×4 (07:54→20:23)
[2020-05-10 09:44] LABS: Glucose Point of Care 139 (65-105)
--- NOTE | 2020-05-10 10:04 | PC.NURSE ---
Updated with plan of care. to bring personal items to hospital for patient.
[2020-05-10] MEDS: ENOXAPARIN 40 MG/0.4 ML SYRINGE SUB-Q ×2 (11:36→20:16)
[2020-05-10] MEDS: DEXAMETHASONE SOD PHOS INJ 4 MG/ML VIAL 6 MG IV PUSH (11:37)
[2020-05-10] MEDS: ZINC SULFATE 220 MG CAPSULE PO (11:37)
[2020-05-10] MEDS: IRBESARTAN 150 MG TABLET 300 MG PO (11:37)
[2020-05-10] MEDS: THERAPEUTIC MULTIVITAMINS/MINERALS TAB (*BKC) 1 TABLET PO (11:37)
[2020-05-10] MEDS: ASCORBIC ACID 250 MG TABLET PO (11:37)
[2020-05-10] MEDS: CHOLECALCIFEROL 1,000 UNITS TABLET 1000 UNITS PO (11:38)
[2020-05-10] MEDS: LOVASTATIN 20 MG TABLET 40 MG PO (11:38)
[2020-05-10] MEDS: SACCHAROMYCES BOULARDII 250 MG CAPSULE PO ×2 (11:38→17:35)
[2020-05-10] MEDS: PANTOPRAZOLE 40 MG TABLET PO (11:39)
[2020-05-10 12:28] LABS: Glucose Point of Care 170 (65-105)
--- NOTE | 2020-05-10 14:32 | WPDINTPN ---
Progress Note: A&P Assessment and Plan (1) Acute respiratory failure: Code(s): J96.00 - Acute respiratory failure, unspecified whether with hypoxia or hypercapnia Status: Acute Assessment and Plan: Acute Respiratory failure secondary to COVID-19 pneumonia - patient currently on Airvo 85% FiO2 and 60L flow. may need intubation if continues to worsen -CXR shows Diffuse lung disease with interval worsening, consistent with pneumonia and/or pulmonary edema and/or acute respiratory distress syndrome (ARDS). - continue Bronchodilators - continue dexamethasone (initiated 05/04 outpatient), remdesivir (initiated 05/05) - 05/09/2020: Received convalescent closed - and tried to prone himself a which was difficult, he said he will try again - patient doing incentive spirometry and sitting up in chair as much as possible (2) Pneumonia due to COVID-19 virus: Code(s): U07.1 - COVID-19; J12.89 - Other viral pneumonia Status: Acute Assessment and Plan: Patient is in Airborne, Droplet and Contact Isolation - Continue antiobiotics for empiric bacterial coverage - monitor inflammatory markers - continue vitamin C vitamin D and zinc (3) Normocytic anemia: Code(s): D64.9 - Anemia, unspecified Status: Acute Assessment and Plan: Acute vs. chronic. patient does complain of hemorrhoids and small amount of blood in his stool infrequently Monitor H/H stable at this time (4) Type 2 diabetes mellitus without complication, without long-term current use of insulin: Code(s): E11.9 - Type 2 diabetes mellitus without complications Status: Chronic Assessment and Plan: continue sliding scale may need Lantus (5) Essential (primary) hypertension: Code(s): I10 - Essential (primary) hypertension Status: Chronic Assessment and Plan: controlled on irbesartan. Continue to monitor. (6) Gastro-esophageal reflux disease without esophagitis: Code(s): K21.9 - Gastro-esophageal reflux disease without esophagitis Status: Chronic Assessment and Plan: Continue PPI therapy. (7) Mixed hyperlipidemia: Code(s): E78.2 - Mixed hyperlipidemia Status: Chronic Assessment and Plan: LFTs are very mildly elevated. Will continue lovastatin and monitor levels improving Additional Plan DVT prophylaxis - intermediate dose Lovenox Stress ulcer prophylaxis - PPI Nutrition - diabetic that Code Status - patient wishes to be Full Code discussed with Dr. Bush Total Critical Care Time - 33 minutes Due to a high probability of clinically significant, life threatening deterioration, the patient required my highest level of preparedness to intervene emergently and I personally spent this critical care time directly and personally managing the patient. This critical care time included obtaining a history; examining the patient; pulse oximetry; ordering and review of studies; arranging urgent treatment with development of a management plan; evaluation of patient's response to treatment; frequent reassessment; and discussions with other providers. It was exclusive of separately billable procedures and treating other patients and teaching time. Please see Assessment and Plan section and the rest of the note for further information on patient assessment and treatment Subjective Date/time seen: 05/10/20 14:33 Interval history: 50 year old Diabetic male with known history of HTN and GERD who presented to the hospital with increased shortness of breath over the past few days Prior to admission on 05/05/2020. COVID-19 positive on 05/03/2020. 05/10/2020: Patient seen and examined the ICU. Remains on 85% FiO2, 60 L flow rate on air well. Patient is sitting up in the chair most of the time, O2 sats have been adequate. Hemodynamically stable, adequate urine output. Complains of mild dry cough, denies any chest pain, nausea,
[2020-05-10] MEDS: INSULIN ASPART (*BKC) 100 UNITS/ML SUB-Q (17:32)
[2020-05-10 17:42] LABS: Glucose Point of Care 238 (65-105)
[2020-05-11] VITALS (15 sets, daily range): BP systolic 120–137; BP diastolic 60–88; PULSE 73–101; RESP 15–26; TEMP 35.8–36.5; O2SAT 90–98
[2020-05-11 05:50] LABS: Hematocrit 35.3 % (42.0-52.0); Mean Corpuscular Hemoglobin 29.9 pg (26-34); Mean Corpuscular Volume 87.8 fl (80-100); Platelet Count Result 267 k/mm3 (150-375); Red Blood Count 4.02 M/mm3 (4.6-6.20); White Blood Count 15.2 K/mm3 (4.5-10.0)
[2020-05-11 06:03] LABS: Alanine Aminotransferase 66 U/L (4-50); Albumin Level 3.2 g/dL (3.5-5.1); Alkaline Phosphatase 88 U/L (38-126); Anion Gap 6 mmol/L (8-16); Aspartate Amino Transferase 38 U/L (17-59); Bilirubin,Total 0.7 mg/dL (0.2-1.3); Blood Urea Nitrogen 19 mg/dL (9-20); Calcium 8.9 mg/dL (8.4-10.2); Carbon Dioxide 27 mmol/L (22-30); Chloride 101 mmol/L (98-107); Estimated CRCL calculation 149 ml/min; Estimated Glomerular Filt Rate > 60; Glucose 167 mg/dL (75-110); Magnesium 2.3 mg/dL (1.6-2.3); Phosphorus 3.8 mg/dL (2.5-4.5); Potassium 4.1 mmol/L (3.4-5.0); Sodium 134 mmol/L (137-145)
[2020-05-11 06:14] LABS: CRP 14.4 mg/dL (<1.0)
[2020-05-11 07:45] LABS: Legionella pneumophila Ag Ur Not Detected (Not Detected)
[2020-05-11] MEDS: SACCHAROMYCES BOULARDII 250 MG CAPSULE PO ×2 (08:39→17:22)
[2020-05-11] MEDS: ASCORBIC ACID 250 MG TABLET PO (08:39)
[2020-05-11] MEDS: ZINC SULFATE 220 MG CAPSULE PO (08:39)
[2020-05-11] MEDS: THERAPEUTIC MULTIVITAMINS/MINERALS TAB (*BKC) 1 TABLET PO (08:39)
[2020-05-11] MEDS: LOVASTATIN 20 MG TABLET 40 MG PO (08:39)
[2020-05-11] MEDS: DEXAMETHASONE SOD PHOS INJ 4 MG/ML VIAL 6 MG IV PUSH (08:40)
[2020-05-11] MEDS: PANTOPRAZOLE 40 MG TABLET PO (08:40)
[2020-05-11] MEDS: IRBESARTAN 150 MG TABLET 300 MG PO (08:40)
[2020-05-11] MEDS: CHOLECALCIFEROL 1,000 UNITS TABLET 1000 UNITS PO (08:40)
[2020-05-11] MEDS: ENOXAPARIN 40 MG/0.4 ML SYRINGE SUB-Q ×2 (08:40→20:03)
[2020-05-11 09:01] LABS: Glucose Point of Care 143 (65-105)
[2020-05-11] MEDS: ALBUTEROL SULFATE (*SP) AEROSOL 1 PUFF 2 PUFF INHALATION ×3 (10:00→19:49)
[2020-05-11 12:15] LABS: Glucose Point of Care 209 (65-105)
[2020-05-11] MEDS: INSULIN ASPART (*BKC) 100 UNITS/ML SUB-Q ×2 (12:34→17:19)
--- NOTE | 2020-05-11 16:05 | WPDINTPN ---
Progress Note: A&P Assessment and Plan (1) Acute respiratory failure: Code(s): J96.00 - Acute respiratory failure, unspecified whether with hypoxia or hypercapnia Status: Acute Assessment and Plan: Acute Respiratory failure secondary to COVID-19 pneumonia - patient currently on Airvo 85% FiO2 and 60L flow. may need intubation if continues to worsen -CXR shows Diffuse lung disease with interval worsening, consistent with pneumonia and/or pulmonary edema and/or acute respiratory distress syndrome (ARDS). - continue Bronchodilators - continue dexamethasone (initiated 05/04 outpatient), remdesivir (initiated 05/05) - 05/09/2020: Received convalescent closed - and tried to prone himself a which was difficult, he said he will try again - patient doing incentive spirometry and sitting up in chair as much as possible (2) Pneumonia due to COVID-19 virus: Code(s): U07.1 - COVID-19; J12.89 - Other viral pneumonia Status: Acute Assessment and Plan: Patient is in Airborne, Droplet and Contact Isolation - Continue antiobiotics for empiric bacterial coverage - monitor inflammatory markers - continue vitamin C vitamin D and zinc (3) Normocytic anemia: Code(s): D64.9 - Anemia, unspecified Status: Acute Assessment and Plan: Acute vs. chronic. patient does complain of hemorrhoids and small amount of blood in his stool infrequently Monitor H/H stable at this time (4) Type 2 diabetes mellitus without complication, without long-term current use of insulin: Code(s): E11.9 - Type 2 diabetes mellitus without complications Status: Chronic Assessment and Plan: continue sliding scale may need Lantus (5) Essential (primary) hypertension: Code(s): I10 - Essential (primary) hypertension Status: Chronic Assessment and Plan: controlled on irbesartan. Continue to monitor. (6) Gastro-esophageal reflux disease without esophagitis: Code(s): K21.9 - Gastro-esophageal reflux disease without esophagitis Status: Chronic Assessment and Plan: Continue PPI therapy. (7) Mixed hyperlipidemia: Code(s): E78.2 - Mixed hyperlipidemia Status: Chronic Assessment and Plan: LFTs are very mildly elevated. Will continue lovastatin and monitor levels improving Additional Plan DVT prophylaxis - Lovenox 40 mg subcu q.12 hours Stress ulcer prophylaxis - PPI Nutrition - diabetic diet Code Status - Full Code Total Critical Care Time - 33 minutes Due to a high probability of clinically significant, life threatening deterioration, the patient required my highest level of preparedness to intervene emergently and I personally spent this critical care time directly and personally managing the patient. This critical care time included obtaining a history; examining the patient; pulse oximetry; ordering and review of studies; arranging urgent treatment with development of a management plan; evaluation of patient's response to treatment; frequent reassessment; and discussions with other providers. It was exclusive of separately billable procedures and treating other patients and teaching time. Please see Assessment and Plan section and the rest of the note for further information on patient assessment and treatment Subjective Date/time seen: 05/11/20 16:05 Interval history: 50 year old Diabetic male with known history of HTN and GERD who presented to the hospital with increased shortness of breath over the past few days Prior to admission on 05/05/2020. COVID-19 positive on 05/03/2020. 05/11/2020: Patient seen and examined the ICU. Remains on 85% FiO2, 60 L flow rate on air well. Patient is sitting up in the chair most of the time, O2 sats have been adequate. Hemodynamically stable, adequate urine output. Complains of mild dry cough, denies any chest pain, nausea, vomiting, loss of sense of taste or
--- NOTE | 2020-05-11 16:48 | PM.IMPN ---
Progress Note: A&P Assessment and Plan (1) Pneumonia due to COVID-19 virus: Code(s): U07.1 - COVID-19; J12.89 - Other viral pneumonia Status: Acute Assessment and Plan: 05/11/20 16:48 The patient reported symptoms started 04/28. He tested positive for COVID 05/03. Dyspnea worsened. He was hypoxic on presentation to the emergency department and requiring 2 liters initially. He is now on 6.5 liters per nsaal cannula. Continue supplemental oxygen to maintain oxygen saturation of >93% and wean as tolerated. Continue IV antibiotics (started azithromycin outpatient 05/03), dexamethasone (day 09/07 - initiated 05/04 outpatient), remdesivir (day 08/05 - initiated 05/05) bronchodilators, antitussives, mucinex. Sputum culture, pneumococcal antigen, legionella urinary antigen, mycoplasma Ab testing were obtained and are pending. Blood cultures were obtained and are pending. Continue droplet isolation. Add continuous pulse oximetry for closer monitoring of oxygen saturation given increasing oxygen requirements. Monitor acute phase reactants and LFTs closely. 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 after discussing with the patient risk and benefit the treatment was ordered, Patient received convalscent plasma on 05/09, today patient is sitting in the chair I spoke with him is feeling better his breathing is also getting better denies any fever or chills (2) Severe sepsis: Code(s): A41.9 - Sepsis, unspecified organism; R65.20 - Severe sepsis without septic shock Status: Acute Assessment and Plan: w/ tachycardia and elevated lactic acid. Source of sepsis is likely secondary to COVID-19. Reflex lactic acid normalized. Continue treatment of COVID-19 as above. Monitor acid-base status. Monitor urine output and hemodynamics. (3) Normocytic anemia: Code(s): D64.9 - Anemia, unspecified Status: Acute Assessment and Plan: Acute vs. chronic. No signs of acute blood loss. Monitor H/H, transfuse prn. Check vitamin B12, folate, iron studies. (4) Elevated lactic acid level: Code(s): R79.89 - Other specified abnormal findings of blood chemistry Status: Resolved Assessment and Plan: Resolved. Likely secondary to sepsis and COVID-19. Reflex lactic acid was normal. (5) Type 2 diabetes mellitus without complication, without long-term current use of insulin: Code(s): E11.9 - Type 2 diabetes mellitus without complications Status: Chronic Assessment and Plan: Blood sugars were reviewed and are acceptable at this time. Monitor closely given dexamethasone therapy. Hold metformin. Continue ACHS glucose monitoring, sliding scale insulin, and hypoglycemia protocol. (6) Essential (primary) hypertension: Code(s): I10 - Essential (primary) hypertension Status: Chronic Assessment and Plan: Blood pressures were elevated yesterday but have improved today. Continue irbesartan. Continue to monitor. (7) Gastro-esophageal reflux disease without esophagitis: Code(s): K21.9 - Gastro-esophageal reflux disease without esophagitis Status: Chronic Assessment and Plan: Continue PPI therapy. (8) Mixed hyperlipidemia: Code(s): E78.2 - Mixed hyperlipidemia Status: Chronic Assessment and Plan: LFTs are very mildly elevated. Will continue lovastatin and monitor CMP daily. Subjective Date/time seen: 05/11/20 16:48 The patient reported symptoms started 04/28. He tested positive for COVID 05/03. Dyspnea worsened. He was hypoxic on presentation to the emergency department and requiring 2 liters initially. He is now on 6.5 liters per nsaal cannula. Continue supplemental oxygen to maintain oxygen saturation of >93% and wean as tolerated. Continue IV antibiotics (start
[2020-05-11 19:16] LABS: Glucose Point of Care 233 (65-105)
[2020-05-12] VITALS (20 sets, daily range): BP systolic 102–132; BP diastolic 50–80; PULSE 67–105; RESP 17–30; TEMP 35.8–36.4; O2SAT 90–97
[2020-05-12 05:50] LABS: Mean Corpuscular HGB Conc 33.3 g/dl (32-36); Mean Corpuscular Hemoglobin 29.6 pg (26-34); Mean Corpuscular Volume 88.9 fl (80-100); Mean Platelet Volume 8.9 fl (7.4-10.4); Platelet Count Result 270 k/mm3 (150-375); Red Blood Count 4.05 M/mm3 (4.6-6.20); White Blood Count 14.7 K/mm3 (4.5-10.0)
[2020-05-12 05:56] LABS: Alanine Aminotransferase 87 U/L (4-50); Albumin Level 3.1 g/dL (3.5-5.1); Alkaline Phosphatase 86 U/L (38-126); Anion Gap 3 mmol/L (8-16); Aspartate Amino Transferase 37 U/L (17-59); Bilirubin,Total 0.7 mg/dL (0.2-1.3); Blood Urea Nitrogen 18 mg/dL (9-20); CRP 7.9 mg/dL (<1.0); Calcium 9.2 mg/dL (8.4-10.2); Carbon Dioxide 32 mmol/L (22-30); Chloride 100 mmol/L (98-107); Estimated CRCL calculation 121 ml/min; Estimated Glomerular Filt Rate > 60; Glucose 144 mg/dL (75-110); Lactate Dehydrogenase 849 U/L (313-618); Magnesium 2.1 mg/dL (1.6-2.3); Phosphorus 4.3 mg/dL (2.5-4.5); Potassium 3.9 mmol/L (3.4-5.0); Sodium 135 mmol/L (137-145)
[2020-05-12 05:59] LABS: D Dimer 2.32 ug/mL (<0.48)
[2020-05-12 07:54] LABS: Glucose Point of Care 116 (65-105)
[2020-05-12] MEDS: DEXAMETHASONE SOD PHOS INJ 4 MG/ML VIAL 6 MG IV PUSH (08:11)
[2020-05-12] MEDS: PANTOPRAZOLE 40 MG TABLET PO (08:11)
[2020-05-12] MEDS: LOVASTATIN 20 MG TABLET 40 MG PO (08:12)
[2020-05-12] MEDS: THERAPEUTIC MULTIVITAMINS/MINERALS TAB (*BKC) 1 TABLET PO (08:12)
[2020-05-12] MEDS: ASCORBIC ACID 250 MG TABLET PO (08:12)
[2020-05-12] MEDS: SACCHAROMYCES BOULARDII 250 MG CAPSULE PO ×2 (08:12→17:09)
[2020-05-12] MEDS: ENOXAPARIN 40 MG/0.4 ML SYRINGE SUB-Q ×2 (08:12→19:42)
[2020-05-12] MEDS: CHOLECALCIFEROL 1,000 UNITS TABLET 1000 UNITS PO (08:13)
[2020-05-12] MEDS: IRBESARTAN 150 MG TABLET 300 MG PO (08:13)
[2020-05-12] MEDS: ZINC SULFATE 220 MG CAPSULE PO (08:13)
[2020-05-12] MEDS: ALBUTEROL SULFATE (*SP) AEROSOL 1 PUFF 2 PUFF INHALATION ×4 (08:30→20:44)
--- NOTE | 2020-05-12 11:00 | WPDINTPN ---
Progress Note: A&P Assessment and Plan (1) Acute respiratory failure: Code(s): J96.00 - Acute respiratory failure, unspecified whether with hypoxia or hypercapnia <Omayra Sterling PA-C - Last Filed: 05/12/20 13:17> Status: Acute <Omayra Sterling PA-C - Last Filed: 05/12/20 13:17> Assessment and Plan: Acute respiratory failure secondary to COVID-19 pneumonia. - Currently on Airvo 64% FiO2 and 60 L flow. - Chest x-ray shows diffuse acute bilateral airspace disease. - Encourage prone position however he had difficulties with that yesterday. - Continue bronchodilators and incentive spirometry. - Continue dexamethasone (initiated 05/04 as outpatient). - Completed 5 day course of remdesivir (initiated 05/05). - Received 1 unit convalescent plasma on 05/09. - Continue vitamin-C, vitamin-D, and zinc supplementation. - Inflammatory markers improving although D-dimer is up a bit. <Omayra Sterling PA-C - Last Filed: 05/12/20 13:17> (2) Pneumonia due to COVID-19 virus: Code(s): U07.1 - COVID-19; J12.89 - Other viral pneumonia <Omayra Sterling PA-C - Last Filed: 05/12/20 13:17> Status: Acute <Omayra Sterling PA-C - Last Filed: 05/12/20 13:17> Assessment and Plan: - Continue airborne, droplet, and contact isolation. - Completed ceftriaxone 7 day course and azithromycin 3 day course. - Attempt sputum for culture. <Omayra Sterling PA-C - Last Filed: 05/12/20 13:17> (3) Normocytic anemia: Code(s): D64.9 - Anemia, unspecified <Omayra Sterling PA-C - Last Filed: 05/12/20 13:17> Status: Acute <Omayra Sterling PA-C - Last Filed: 05/12/20 13:17> Assessment and Plan: - Possible chronic (reports hemorrhoids and occasional small amount of blood in his stool) versus acute. - Stable on review of previous labs, continue to monitor. <Omayra Sterling PA-C - Last Filed: 05/12/20 13:17> (4) Type 2 diabetes mellitus without complication, without long-term current use of insulin: Code(s): E11.9 - Type 2 diabetes mellitus without complications <Omayra Sterling PA-C - Last Filed: 05/12/20 13:17> Status: Chronic <Omayra Sterling PA-C - Last Filed: 05/12/20 13:17> Assessment and Plan: - Patient tells me that he is prediabetic and it is historically been well controlled on metformin. - Glucose reviewed and it has been running high secondary to dexamethasone. - For now we will continue with sliding scale insulin and close monitoring. <Omayra Sterling PA-C - Last Filed: 05/12/20 13:17> (5) Essential (primary) hypertension: Code(s): I10 - Essential (primary) hypertension <Omayra Sterling PA-C - Last Filed: 05/12/20 13:17> Status: Chronic <Omayra Sterling PA-C - Last Filed: 05/12/20 13:17> Assessment and Plan: - Blood pressures were reviewed and they are stable on antihypertensives. <Omayra Sterling PA-C - Last Filed: 05/12/20 13:17> (6) Mixed hyperlipidemia: Code(s): E78.2 - Mixed hyperlipidemia <Omayra Sterling PA-C - Last Filed: 05/12/20 13:17> Status: Chronic <Omayra Sterling PA-C - Last Filed: 05/12/20 13:17> Assessment and Plan: - On lovastatin, LFTs or initially elevated but have improved. <Omayra Sterling PA-C - Last Filed: 05/12/20 13:17> (7) Gastro-esophageal reflux disease without esophagitis: Code(s): K21.9 - Gastro-esophageal reflux disease without esophagitis <Omayra Sterling PA-C - Last Filed: 05/12/20 13:17> Status: Chronic <Artemio
[2020-05-12 11:47] LABS: Glucose Point of Care 203 (65-105)
--- NOTE | 2020-05-12 16:57 | PM.IMPN ---
Progress Note: A&P Assessment and Plan (1) Acute respiratory failure: Code(s): J96.00 - Acute respiratory failure, unspecified whether with hypoxia or hypercapnia Status: Acute Assessment and Plan: Acute respiratory failure secondary to COVID-19 pneumonia. - Currently on Airvo 64% FiO2 and 60 L flow. - Chest x-ray shows diffuse acute bilateral airspace disease. - Encourage prone position however he had difficulties with that yesterday. - Continue bronchodilators and incentive spirometry. - Continue dexamethasone (initiated 05/04 as outpatient). - Completed 5 day course of remdesivir (initiated 05/05). - Received 1 unit convalescent plasma on 05/09. - Continue vitamin-C, vitamin-D, and zinc supplementation. - Inflammatory markers improving although D-dimer is up a bit. 05/12/20 16:57 The patient reported symptoms started 04/28. He tested positive for COVID 05/03. Dyspnea worsened. He was hypoxic on presentation to the emergency department and requiring 2 liters initially. He is now on 6.5 liters per nsaal cannula. Continue supplemental oxygen to maintain oxygen saturation of >93% and wean as tolerated. Continue IV antibiotics (started azithromycin outpatient 05/03), dexamethasone (day 09/07 - initiated 05/04 outpatient), remdesivir (day 08/05 - initiated 05/05) bronchodilators, antitussives, mucinex. Sputum culture, pneumococcal antigen, legionella urinary antigen, mycoplasma Ab testing were obtained and are pending. Blood cultures were obtained and are pending. Continue droplet isolation. Add continuous pulse oximetry for closer monitoring of oxygen saturation given increasing oxygen requirements. Monitor acute phase reactants and LFTs closely. 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 after discussing with the patient risk and benefit the treatment was ordered, Patient received convalscent plasma on 05/09, today 05/12 patient is sitting in the chair I spoke with him is feeling better his breathing is also getting better his oxygen requirement is decreased, he has completed the 5 days course remdesivir of denies any fever or chills, his pains most of his waking hours on the chair does get short of breath with exertion, encouraged to sleep on prone position however has difficulty most likely due to obesity. (2) Pneumonia due to COVID-19 virus: Code(s): U07.1 - COVID-19; J12.89 - Other viral pneumonia Status: Acute Assessment and Plan: - Continue airborne, droplet, and contact isolation. - Completed ceftriaxone 7 day course and azithromycin 3 day course. - Attempt sputum for culture. (3) Normocytic anemia: Code(s): D64.9 - Anemia, unspecified Status: Acute Assessment and Plan: - Possible chronic (reports hemorrhoids and occasional small amount of blood in his stool) versus acute. - Stable on review of previous labs, continue to monitor. (4) Type 2 diabetes mellitus without complication, without long-term current use of insulin: Code(s): E11.9 - Type 2 diabetes mellitus without complications Status: Chronic Assessment and Plan: - Patient tells me that he is prediabetic and it is historically been well controlled on metformin. - Glucose reviewed and it has been running high secondary to dexamethasone. - For now we will continue with sliding scale insulin and close monitoring. (5) Essential (primary) hypertension: Code(s): I10 - Essential (primary) hypertension Status: Chronic Assessment and Plan: - Blood pressures were reviewed and they are stable on antihypertensives.
[2020-05-12] MEDS: INSULIN ASPART (*BKC) 100 UNITS/ML SUB-Q (17:09)
[2020-05-12 18:28] LABS: Glucose Point of Care 254 (65-105)
[2020-05-13] VITALS (20 sets, daily range): BP systolic 113–136; BP diastolic 72–80; PULSE 54–102; RESP 12–27; TEMP 35.7–36.7; O2SAT 91–99
[2020-05-13] MEDS: ALBUTEROL SULFATE (*SP) AEROSOL 1 PUFF 2 PUFF INHALATION ×5 (02:44→21:13)
[2020-05-13 05:19] LABS: Hematocrit 34.3 % (42.0-52.0); Hemoglobin 11.9 g/dL (14.0-18.0); Mean Corpuscular HGB Conc 34.7 g/dl (32-36); Mean Corpuscular Hemoglobin 30.4 pg (26-34); Mean Corpuscular Volume 87.7 fl (80-100); Mean Platelet Volume 8.8 fl (7.4-10.4); Platelet Count Result 234 k/mm3 (150-375); Red Blood Count 3.91 M/mm3 (4.6-6.20); Red Cell Distribution Width 11.9 % (11.5-14.5); White Blood Count 12.9 K/mm3 (4.5-10.0)
[2020-05-13 05:37] LABS: Alanine Aminotransferase 91 U/L (4-50); Alkaline Phosphatase 82 U/L (38-126); Anion Gap 5 mmol/L (8-16); Aspartate Amino Transferase 31 U/L (17-59); Bilirubin,Total 0.7 mg/dL (0.2-1.3); Blood Urea Nitrogen 18 mg/dL (9-20); CRP 6.4 mg/dL (<1.0); Carbon Dioxide 30 mmol/L (22-30); Chloride 100 mmol/L (98-107); Estimated CRCL calculation 136 ml/min; Estimated Glomerular Filt Rate > 60; Glucose 161 mg/dL (75-110); Magnesium 2.2 mg/dL (1.6-2.3); Phosphorus 4.4 mg/dL (2.5-4.5); Potassium 4.1 mmol/L (3.4-5.0); Sodium 135 mmol/L (137-145)
[2020-05-13] MEDS: IRBESARTAN 150 MG TABLET 300 MG PO (08:04)
[2020-05-13] MEDS: ENOXAPARIN 40 MG/0.4 ML SYRINGE SUB-Q ×2 (08:04→20:19)
[2020-05-13] MEDS: LOVASTATIN 20 MG TABLET 40 MG PO (08:04)
[2020-05-13] MEDS: DEXAMETHASONE SOD PHOS INJ 4 MG/ML VIAL 6 MG IV PUSH (08:05)
[2020-05-13] MEDS: PANTOPRAZOLE 40 MG TABLET PO (08:05)
[2020-05-13] MEDS: THERAPEUTIC MULTIVITAMINS/MINERALS TAB (*BKC) 1 TABLET PO (08:05)
[2020-05-13] MEDS: SACCHAROMYCES BOULARDII 250 MG CAPSULE PO ×2 (08:05→17:14)
[2020-05-13] MEDS: ASCORBIC ACID 250 MG TABLET PO (08:06)
[2020-05-13] MEDS: ZINC SULFATE 220 MG CAPSULE PO (08:07)
[2020-05-13] MEDS: CHOLECALCIFEROL 1,000 UNITS TABLET 1000 UNITS PO (08:07)
[2020-05-13 11:40] LABS: Glucose Point of Care 203 (65-105)
--- NOTE | 2020-05-13 13:00 | WPDINTPN ---
Progress Note: A&P Assessment and Plan (1) Acute respiratory failure: Code(s): J96.00 - Acute respiratory failure, unspecified whether with hypoxia or hypercapnia <Omayra Sterling PA-C - Last Filed: 05/13/20 15:40> Status: Acute <Omayra Sterling PA-C - Last Filed: 05/13/20 15:40> Assessment and Plan: Acute respiratory failure secondary to COVID-19 pneumonia. - Off Airvo, now on high-flow therapy with nasal cannula at 15 L. - Chest x-ray continues to show diffuse acute bilateral airspace disease. - Continue to encourage prone position as tolerated. - Continue bronchodilators and incentive spirometry. - Continue dexamethasone (initiated 05/04 as outpatient). - Completed 5 day course of remdesivir (initiated 05/05). - Received 1 unit convalescent plasma on 05/09. - Continue vitamin-C, vitamin-D, and zinc supplementation. <Omayra Sterling PA-C - Last Filed: 05/13/20 15:40> (2) Pneumonia due to COVID-19 virus: Code(s): U07.1 - COVID-19; J12.89 - Other viral pneumonia <Omayra Sterling PA-C - Last Filed: 05/13/20 15:40> Status: Acute <Omayra Sterling PA-C - Last Filed: 05/13/20 15:40> Assessment and Plan: - Continue airborne, droplet, and contact isolation. - Completed ceftriaxone 7 day course and azithromycin 3 day course. - Sputum culture pending. <Omayra Sterling PA-C - Last Filed: 05/13/20 15:40> (3) Normocytic anemia: Code(s): D64.9 - Anemia, unspecified <Omayra Sterling PA-C - Last Filed: 05/13/20 15:40> Status: Acute <Omayra Sterling PA-C - Last Filed: 05/13/20 15:40> Assessment and Plan: - Possible chronic (reports hemorrhoids and occasional small amount of blood in his stool) versus acute. - Stable on review of previous labs, continue to monitor. <Omayra Sterling PA-C - Last Filed: 05/13/20 15:40> (4) Type 2 diabetes mellitus without complication, without long-term current use of insulin: Code(s): E11.9 - Type 2 diabetes mellitus without complications <Omayra Sterling PA-C - Last Filed: 05/13/20 15:40> Status: Chronic <Omayra Sterling PA-C - Last Filed: 05/13/20 15:40> Assessment and Plan: - Patient tells me that he is prediabetic and it is historically been well controlled on metformin. - Glucose reviewed and it has been running high secondary to dexamethasone. - For now we will continue with sliding scale insulin and close monitoring. - Check hemoglobin A1c. <Omayra Sterling PA-C - Last Filed: 05/13/20 15:40> (5) Essential (primary) hypertension: Code(s): I10 - Essential (primary) hypertension <Omayra Sterling PA-C - Last Filed: 05/13/20 15:40> Status: Chronic <Omayra Sterling PA-C - Last Filed: 05/13/20 15:40> Assessment and Plan: - Blood pressures were reviewed (05/13) and they are stable on antihypertensives. <Omayra Sterling PA-C - Last Filed: 05/13/20 15:40> (6) Mixed hyperlipidemia: Code(s): E78.2 - Mixed hyperlipidemia <Omayra Sterling PA-C - Last Filed: 05/13/20 15:40> Status: Chronic <BRIAN Lu Last Filed: 05/13/20 15:40> Assessment and Plan: - On lovastatin, LFTs were initially elevated but have improved. <Omayra Sterling PA-C - Last Filed: 05/13/20 15:40> (7) Gastro-esophageal reflux disease without esophagitis: Code(s): K21.9 - Gastro-esophageal reflux disease without esophagitis <Omayra Sterling PA-C - Last Filed: 05/13/20 15:40> Status: Chronic <BRIAN Lu
[2020-05-13 16:22] LABS: Glucose Point of Care 295 (65-105)
--- NOTE | 2020-05-13 17:02 | PM.IMPN ---
Progress Note: A&P Assessment and Plan (1) Acute respiratory failure: Code(s): J96.00 - Acute respiratory failure, unspecified whether with hypoxia or hypercapnia Status: Acute Assessment and Plan: Acute respiratory failure secondary to COVID-19 pneumonia. - Off Airvo, now on high-flow therapy with nasal cannula at 15 L. - Chest x-ray continues to show diffuse acute bilateral airspace disease. - Continue to encourage prone position as tolerated. - Continue bronchodilators and incentive spirometry. - Continue dexamethasone (initiated 05/04 as outpatient). - Completed 5 day course of remdesivir (initiated 05/05). - Received 1 unit convalescent plasma on 05/09. - Continue vitamin-C, vitamin-D, and zinc supplementation. 05/13/20 17:05 The patient reported symptoms started 04/28. He tested positive for COVID 05/03. Dyspnea worsened. He was hypoxic on presentation to the emergency department and requiring 2 liters initially. He is now on 6.5 liters per nsaal cannula. Continue supplemental oxygen to maintain oxygen saturation of >93% and wean as tolerated. Continue IV antibiotics (started azithromycin outpatient 05/03), dexamethasone (day 09/07 - initiated 05/04 outpatient), remdesivir (day 08/05 - initiated 05/05) bronchodilators, antitussives, mucinex. Sputum culture, pneumococcal antigen, legionella urinary antigen, mycoplasma Ab testing were obtained and are pending. Blood cultures were obtained and are pending. Continue droplet isolation. Add continuous pulse oximetry for closer monitoring of oxygen saturation given increasing oxygen requirements. Monitor acute phase reactants and LFTs closely. 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 after discussing with the patient risk and benefit the treatment was ordered, Patient received convalscent plasma on 05/09, today 05/13 patient is sitting in the chair I spoke with him is feeling better his breathing is also getting better his oxygen requirement is 15L, he has completed the 5 days course remdesivir, denies any fever or chills, he spents most of his waking hours on the chair does get short of breath with exertion, encouraged to sleep on prone position however has difficulty most likely due to obesity. 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 - Completed ceftriaxone 7 day course and azithromycin 3 day course. - Sputum culture pending. (3) Normocytic anemia: Code(s): D64.9 - Anemia, unspecified Status: Acute Assessment and Plan: - Possible chronic (reports hemorrhoids and occasional small amount of blood in his stool) versus acute. - Stable on review of previous labs, continue to monitor. (4) Type 2 diabetes mellitus without complication, without long-term current use of insulin: Code(s): E11.9 - Type 2 diabetes mellitus without complications Status: Chronic Assessment and Plan: - Patient tells me that he is prediabetic and it is historically been well controlled on metformin. - Glucose reviewed and it has been running high secondary to dexamethasone. - For now we will continue with sliding scale insulin and close monitoring. - Check hemoglobin A1c. (5) Essential (primary) hypertension: Code(s): I10 - Essential (primary) hypertension Status: Chronic Assessment and Plan: - Blood pressures were r
[2020-05-13] MEDS: INSULIN ASPART (*BKC) 100 UNITS/ML SUB-Q (17:14)
[2020-05-13] MEDS: guaiFENesin/DEXTROMETHORPHAN 10 ML UDC PO (17:14)
--- NOTE | 2020-05-13 19:27 | PC.NURSE ---
This patient, Matthias Smith, was transferred to [facility] on 05/13/20 at 1927. Personal belongings sent with patient. Report given to Valencia VILLAFUERTE. Appropriate documentation sent with patient.
[2020-05-13 21:10] LABS: Glucose Point of Care 266 (65-105)
[2020-05-14] VITALS (13 sets, daily range): BP systolic 116–130; BP diastolic 66–77; PULSE 76–100; RESP 18–24; TEMP 36.4–36.6; O2SAT 91–96
[2020-05-14 05:17] LABS: Hematocrit 34.3 % (42.0-52.0); Hemoglobin 11.6 g/dL (14.0-18.0); Mean Corpuscular HGB Conc 33.8 g/dl (32-36); Mean Corpuscular Hemoglobin 29.3 pg (26-34); Mean Corpuscular Volume 86.6 fl (80-100); Platelet Count Result 253 k/mm3 (150-375); Red Blood Count 3.96 M/mm3 (4.6-6.20); Red Cell Distribution Width 11.7 % (11.5-14.5); White Blood Count 10.8 K/mm3 (4.5-10.0)
[2020-05-14 05:21] LABS: Alanine Aminotransferase 102 U/L (4-50); Albumin Level 3.3 g/dL (3.5-5.1); Alkaline Phosphatase 80 U/L (38-126); Anion Gap 6 mmol/L (8-16); Aspartate Amino Transferase 36 U/L (17-59); Bilirubin,Total 0.6 mg/dL (0.2-1.3); Blood Urea Nitrogen 17 mg/dL (9-20); CRP 4.5 mg/dL (<1.0); Calcium 9.3 mg/dL (8.4-10.2); Carbon Dioxide 31 mmol/L (22-30); Chloride 100 mmol/L (98-107); Estimated CRCL calculation 137 ml/min; Estimated Glomerular Filt Rate > 60; Glucose 180 mg/dL (75-110); Lactate Dehydrogenase 638 U/L (313-618); Magnesium 2.2 mg/dL (1.6-2.3); Phosphorus 4.3 mg/dL (2.5-4.5); Potassium 4.2 mmol/L (3.4-5.0); Sodium 137 mmol/L (137-145)
[2020-05-14 05:23] LABS: D Dimer 2.11 ug/mL (<0.48)
[2020-05-14 06:11] LABS: Hemoglobin A1C 6.8 % (<5.7)
[2020-05-14 08:39] LABS: Glucose Point of Care 144 (65-105)
[2020-05-14] MEDS: ALBUTEROL SULFATE (*SP) AEROSOL 1 PUFF 2 PUFF INHALATION ×4 (09:29→21:33)
[2020-05-14] MEDS: ENOXAPARIN 40 MG/0.4 ML SYRINGE SUB-Q ×2 (10:00→21:23)
[2020-05-14] MEDS: DEXAMETHASONE SOD PHOS INJ 4 MG/ML VIAL 6 MG IV PUSH (10:00)
[2020-05-14] MEDS: ASCORBIC ACID 250 MG TABLET PO (10:01)
[2020-05-14] MEDS: IRBESARTAN 150 MG TABLET 300 MG PO (10:01)
[2020-05-14] MEDS: CHOLECALCIFEROL 1,000 UNITS TABLET 1000 UNITS PO (10:01)
[2020-05-14] MEDS: THERAPEUTIC MULTIVITAMINS/MINERALS TAB (*BKC) 1 TABLET PO (10:01)
[2020-05-14] MEDS: PANTOPRAZOLE 40 MG TABLET PO (10:02)
[2020-05-14] MEDS: LOVASTATIN 20 MG TABLET 40 MG PO (10:02)
[2020-05-14] MEDS: SACCHAROMYCES BOULARDII 250 MG CAPSULE PO ×2 (10:02→17:02)
[2020-05-14] MEDS: ZINC SULFATE 220 MG CAPSULE PO (10:02)
[2020-05-14 12:37] LABS: Glucose Point of Care 181 (65-105)
[2020-05-14 16:59] LABS: Glucose Point of Care 298 (65-105)
[2020-05-14] MEDS: INSULIN ASPART (*BKC) 100 UNITS/ML SUB-Q (17:02)
--- NOTE | 2020-05-14 17:33 | PM.IMPN ---
Progress Note: A&P Assessment and Plan (1) Acute respiratory failure: Code(s): J96.00 - Acute respiratory failure, unspecified whether with hypoxia or hypercapnia Status: Acute Assessment and Plan: Acute respiratory failure secondary to COVID-19 pneumonia. - Off Airvo, now on high-flow therapy with nasal cannula at 15 L. - Chest x-ray continues to show diffuse acute bilateral airspace disease. - Continue to encourage prone position as tolerated. - Continue bronchodilators and incentive spirometry. - Continue dexamethasone (initiated 05/04 as outpatient). - Completed 5 day course of remdesivir (initiated 05/05). - Received 1 unit convalescent plasma on 05/09. - Continue vitamin-C, vitamin-D, and zinc supplementation. 05/14/20 17:33 The patient reported symptoms started 04/28. He tested positive for COVID 05/03. Dyspnea worsened. He was hypoxic on presentation to the emergency department and requiring 2 liters initially. He is now on 6.5 liters per nsaal cannula. Continue supplemental oxygen to maintain oxygen saturation of >93% and wean as tolerated. Continue IV antibiotics (started azithromycin outpatient 05/03), dexamethasone (day 09/07 - initiated 05/04 outpatient), remdesivir (day 08/05 - initiated 05/05) bronchodilators, antitussives, mucinex. Sputum culture, pneumococcal antigen, legionella urinary antigen, mycoplasma Ab testing were obtained and are pending. Blood cultures were obtained and are pending. Continue droplet isolation. Add continuous pulse oximetry for closer monitoring of oxygen saturation given increasing oxygen requirements. Monitor acute phase reactants and LFTs closely. on 05/08 patient oxygen saturation was decreasing top lift scourer was consulted continue dexamethasone and remedesivr recommended the patient will benefits from convalscent plasma therapy for COVID-19. after discussing with the patient risk and benefit the treatment was ordered, Patient received convalscent plasma on 05/09, today 05/14 sputum culture risk of Pseudomonas will start the patient fortaz pending sensitivity and further recommendation to follow, patient is sitting in the chair is feeling much better, however patient oxygen requirements still high to 15L, patient encouraged to sleep on prone position however patient is a difficult time due to obesity, patient has not had any fever, patient oxygen requirements remain will continue present managed, (2) Pneumonia due to COVID-19 virus: Code(s): U07.1 - COVID-19; J12.89 - Other viral pneumonia Status: Acute Assessment and Plan: - Continue airborne, droplet, and contact isolation. - Completed ceftriaxone 7 day course and azithromycin 3 day course. - Sputum culture pending. (3) Normocytic anemia: Code(s): D64.9 - Anemia, unspecified Status: Acute Assessment and Plan: - Possible chronic (reports hemorrhoids and occasional small amount of blood in his stool) versus acute. - Stable on review of previous labs, continue to monitor. (4) Type 2 diabetes mellitus without complication, without long-term current use of insulin: Code(s): E11.9 - Type 2 diabetes mellitus without complications Status: Chronic Assessment and Plan: - Patient tells me that he is prediabetic and it is historically been well controlled on metformin. - Glucose reviewed and it has been running high secondary to dexamethasone. - For now we will continue with sliding scale insulin and close monitoring. - Check hemoglobin A1c. (5) Essential (primary) hypertension: Code(s): I10 - Essential (primary) hypertension Status: Chronic Assessment and Plan: - Blood pressures were reviewed (05/13) and they are stable on antihypertensives.
[2020-05-14 20:45] LABS: Glucose Point of Care 291 (65-105)
[2020-05-15] VITALS (14 sets, daily range): BP systolic 119–128; BP diastolic 65–79; PULSE 68–96; RESP 18–24; TEMP 36.1–36.9; O2SAT 90–97
[2020-05-15 05:22] LABS: Hematocrit 34.7 % (42.0-52.0); Hemoglobin 11.8 g/dL (14.0-18.0); Mean Corpuscular Hemoglobin 29.7 pg (26-34); Mean Corpuscular Volume 87.4 fl (80-100); Mean Platelet Volume 8.9 fl (7.4-10.4); Platelet Count Result 253 k/mm3 (150-375); Red Blood Count 3.97 M/mm3 (4.6-6.20); Red Cell Distribution Width 11.8 % (11.5-14.5); White Blood Count 10.5 K/mm3 (4.5-10.0)
[2020-05-15 05:51] LABS: Alanine Aminotransferase 113 U/L (4-50); Albumin Level 3.2 g/dL (3.5-5.1); Alkaline Phosphatase 72 U/L (38-126); Anion Gap 5 mmol/L (8-16); Aspartate Amino Transferase 42 U/L (17-59); Bilirubin,Total 0.7 mg/dL (0.2-1.3); Blood Urea Nitrogen 19 mg/dL (9-20); CRP 2.4 mg/dL (<1.0); Calcium 9.3 mg/dL (8.4-10.2); Carbon Dioxide 33 mmol/L (22-30); Chloride 100 mmol/L (98-107); Estimated CRCL calculation 137 ml/min; Estimated Glomerular Filt Rate > 60; Glucose 159 mg/dL (75-110); Potassium 4.6 mmol/L (3.4-5.0); Sodium 138 mmol/L (137-145)
[2020-05-15] MEDS: ALBUTEROL SULFATE (*SP) AEROSOL 1 PUFF 2 PUFF INHALATION ×3 (09:21→21:12)
[2020-05-15 09:34] LABS: Glucose Point of Care 112 (65-105)
[2020-05-15] MEDS: SACCHAROMYCES BOULARDII 250 MG CAPSULE PO ×2 (09:44→17:16)
[2020-05-15] MEDS: IRBESARTAN 150 MG TABLET 300 MG PO (09:44)
[2020-05-15] MEDS: ENOXAPARIN 40 MG/0.4 ML SYRINGE SUB-Q ×2 (09:44→20:58)
[2020-05-15] MEDS: THERAPEUTIC MULTIVITAMINS/MINERALS TAB (*BKC) 1 TABLET PO (09:44)
[2020-05-15] MEDS: ZINC SULFATE 220 MG CAPSULE PO (09:45)
[2020-05-15] MEDS: DEXAMETHASONE SOD PHOS INJ 4 MG/ML VIAL 6 MG IV PUSH (09:45)
[2020-05-15] MEDS: PANTOPRAZOLE 40 MG TABLET PO (09:45)
[2020-05-15] MEDS: ASCORBIC ACID 250 MG TABLET PO (09:45)
[2020-05-15] MEDS: CHOLECALCIFEROL 1,000 UNITS TABLET 1000 UNITS PO (09:45)
[2020-05-15] MEDS: LOVASTATIN 20 MG TABLET 40 MG PO (09:45)
[2020-05-15 13:06] LABS: Glucose Point of Care 174 (65-105)
--- NOTE | 2020-05-15 16:56 | PM.IMPN ---
Progress Note: A&P Assessment and Plan (1) Acute respiratory failure: Code(s): J96.00 - Acute respiratory failure, unspecified whether with hypoxia or hypercapnia Status: Acute Assessment and Plan: Acute respiratory failure secondary to COVID-19 pneumonia. - Off Airvo, now on high-flow therapy with nasal cannula at 15 L. - Chest x-ray continues to show diffuse acute bilateral airspace disease. - Continue to encourage prone position as tolerated. - Continue bronchodilators and incentive spirometry. - Continue dexamethasone (initiated 05/04 as outpatient). - Completed 5 day course of remdesivir (initiated 05/05). - Received 1 unit convalescent plasma on 05/09. - Continue vitamin-C, vitamin-D, and zinc supplementation. 05/15/20 16:56 The patient reported symptoms started 04/28. He tested positive for COVID 05/03. Dyspnea worsened. He was hypoxic on presentation to the emergency department and requiring 2 liters initially. He is now on 6.5 liters per nsaal cannula. Continue supplemental oxygen to maintain oxygen saturation of >93% and wean as tolerated. Continue IV antibiotics (started azithromycin outpatient 05/03), dexamethasone (day 09/07 - initiated 05/04 outpatient), remdesivir (day 08/05 - initiated 05/05) bronchodilators, antitussives, mucinex. Sputum culture, pneumococcal antigen, legionella urinary antigen, mycoplasma Ab testing were obtained and are pending. Blood cultures were obtained and are pending. Continue droplet isolation. Add continuous pulse oximetry for closer monitoring of oxygen saturation given increasing oxygen requirements. Monitor acute phase reactants and LFTs closely. 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 after discussing with the patient risk and benefit the treatment was ordered, Patient received convalscent plasma on 05/09, on 05/14 sputum culture was growing Pseudomonas started the patient on fortaz pending sensitivity and further recommendation to follow, today on 05/15 patient is sitting in the chair is feeling much better, oxygen saturation is improved we have reduced his oxygen flow rate from 15L to 12L , will continue to monitor plan is to wean the patient off oxygen, he has not had any fever for several days, patient encouraged to sleep on prone position however patient is a difficult time due to obesity, will continue present managed will follow-up on the sputum culture and further recommendation to follow. (2) Pneumonia due to COVID-19 virus: Code(s): U07.1 - COVID-19; J12.89 - Other viral pneumonia Status: Acute Assessment and Plan: - Continue airborne, droplet, and contact isolation. - Completed ceftriaxone 7 day course and azithromycin 3 day course. - Sputum culture pending. (3) Normocytic anemia: Code(s): D64.9 - Anemia, unspecified Status: Acute Assessment and Plan: - Possible chronic (reports hemorrhoids and occasional small amount of blood in his stool) versus acute. - Stable on review of previous labs, continue to monitor. (4) Type 2 diabetes mellitus without complication, without long-term current use of insulin: Code(s): E11.9 - Type 2 diabetes mellitus without complications Status: Chronic Assessment and Plan: - Patient tells me that he is prediabetic and it is historically been well controlled on metformin. - Glucose reviewed and it has been running high secondary to dexamethasone. - For now we will continue with sliding scale insulin and close monitoring. - Check hemoglobin A1c. (5) Essential (primary) hypertension: Code(s): I10 - Essential (primary) hype
[2020-05-15] MEDS: INSULIN ASPART (*BKC) 100 UNITS/ML SUB-Q (17:16)
[2020-05-15 18:21] LABS: Glucose Point of Care 279 (65-105)
[2020-05-15 20:51] LABS: Glucose Point of Care 274 (65-105)
[2020-05-16] VITALS (12 sets, daily range): BP systolic 114–133; BP diastolic 64–82; PULSE 68–94; RESP 18–22; TEMP 36.4–37.3; O2SAT 92–98
[2020-05-16 05:28] LABS: Hematocrit 35.5 % (42.0-52.0); Mean Corpuscular HGB Conc 33.8 g/dl (32-36); Mean Corpuscular Hemoglobin 29.7 pg (26-34); Mean Corpuscular Volume 87.9 fl (80-100); Platelet Count Result 265 k/mm3 (150-375); Red Blood Count 4.04 M/mm3 (4.6-6.20); Red Cell Distribution Width 11.8 % (11.5-14.5); White Blood Count 10.3 K/mm3 (4.5-10.0)
[2020-05-16 05:39] LABS: Alanine Aminotransferase 121 U/L (4-50); Albumin Level 3.4 g/dL (3.5-5.1); Alkaline Phosphatase 72 U/L (38-126); Anion Gap 2 mmol/L (8-16); Aspartate Amino Transferase 41 U/L (17-59); Bilirubin,Total 0.6 mg/dL (0.2-1.3); Blood Urea Nitrogen 18 mg/dL (9-20); CRP 1.5 mg/dL (<1.0); Calcium 9.5 mg/dL (8.4-10.2); Carbon Dioxide 37 mmol/L (22-30); Chloride 99 mmol/L (98-107); D Dimer 2.49 ug/mL (<0.48); Estimated CRCL calculation 123 ml/min; Estimated Glomerular Filt Rate > 60; Glucose 151 mg/dL (75-110); Lactate Dehydrogenase 551 U/L (313-618); Potassium 4.2 mmol/L (3.4-5.0); Sodium 138 mmol/L (137-145)
[2020-05-16] MEDS: SACCHAROMYCES BOULARDII 250 MG CAPSULE PO ×2 (08:46→17:50)
[2020-05-16] MEDS: ASCORBIC ACID 250 MG TABLET PO (08:46)
[2020-05-16] MEDS: ZINC SULFATE 220 MG CAPSULE PO (08:46)
[2020-05-16] MEDS: ENOXAPARIN 40 MG/0.4 ML SYRINGE SUB-Q ×2 (08:46→21:30)
[2020-05-16] MEDS: PANTOPRAZOLE 40 MG TABLET PO (08:46)
[2020-05-16] MEDS: CHOLECALCIFEROL 1,000 UNITS TABLET 1000 UNITS PO (08:46)
[2020-05-16] MEDS: DEXAMETHASONE SOD PHOS INJ 4 MG/ML VIAL 6 MG IV PUSH (08:46)
[2020-05-16] MEDS: THERAPEUTIC MULTIVITAMINS/MINERALS TAB (*BKC) 1 TABLET PO (08:47)
[2020-05-16] MEDS: LOVASTATIN 20 MG TABLET 40 MG PO (08:47)
[2020-05-16] MEDS: IRBESARTAN 150 MG TABLET 300 MG PO (08:47)
[2020-05-16 08:49] LABS: Glucose Point of Care 118 (65-105)
[2020-05-16] MEDS: ALBUTEROL SULFATE (*SP) AEROSOL 1 PUFF 2 PUFF INHALATION ×4 (09:10→22:19)
--- NOTE | 2020-05-16 09:48 | PCNWS ---
Weekly nutritional screen. Patient is tolerating current diet with adequate intake. No weight loss reported. No nutritional needs at this time.
--- NOTE | 2020-05-16 10:54 | PC.NURSE ---
This patient, Matthias Smith, was transferred to [facility] on 05/16/20 at 1050. Personal belongings sent with patient. Report given to Ana M VILLAFUERTE. Appropriate documentation sent with patient.
--- NOTE | 2020-05-16 10:57 | PC.NURSE ---
This patient, Matthias Smith, was received from [facility] on 05/16/20 at 1040. Patient/family oriented to unit policies and routines
[2020-05-16] MEDS: INSULIN ASPART (*BKC) 100 UNITS/ML SUB-Q (12:48)
[2020-05-16 13:00] LABS: Glucose Point of Care 215 (65-105)
--- NOTE | 2020-05-16 16:32 | PM.IMPN ---
Progress Note: A&P Assessment and Plan (1) Acute respiratory failure: Code(s): J96.00 - Acute respiratory failure, unspecified whether with hypoxia or hypercapnia Status: Acute Assessment and Plan: Acute respiratory failure secondary to COVID-19 pneumonia. - Off Airvo, now on high-flow therapy with nasal cannula at 15 L. - Chest x-ray continues to show diffuse acute bilateral airspace disease. - Continue to encourage prone position as tolerated. - Continue bronchodilators and incentive spirometry. - Continue dexamethasone (initiated 05/04 as outpatient). - Completed 5 day course of remdesivir (initiated 05/05). - Received 1 unit convalescent plasma on 05/09. - Continue vitamin-C, vitamin-D, and zinc supplementation. 05/16/20 16:32 The patient reported symptoms started 04/28. He tested positive for COVID 05/03. Dyspnea worsened. He was hypoxic on presentation to the emergency department and requiring 2 liters initially. He is now on 6.5 liters per nsaal cannula. Continue supplemental oxygen to maintain oxygen saturation of >93% and wean as tolerated. Continue IV antibiotics (started azithromycin outpatient 05/03), dexamethasone (day 09/07 - initiated 05/04 outpatient), remdesivir (day 08/05 - initiated 05/05) bronchodilators, antitussives, mucinex. Sputum culture, pneumococcal antigen, legionella urinary antigen, mycoplasma Ab testing were obtained and are pending. Blood cultures were obtained and are pending. Continue droplet isolation. Add continuous pulse oximetry for closer monitoring of oxygen saturation given increasing oxygen requirements. Monitor acute phase reactants and LFTs closely. on 05/08 patient oxygen saturation was decreasing soil sampler was consulted continue dexamethasone and remedesivr recommended the patient will benefits from convalscent plasma therapy for COVID-19. after discussing with the patient risk and benefit the treatment was ordered, Patient received convalscent plasma on 05/09, on 05/14 sputum culture was growing Pseudomonas started the patient on fortaz nance sensitive will continue the abx, today on 05/16 patient is sitting in the chair is feeling much better, oxygen saturation is improved we have reduced his oxygen flow rate from 12 to 7L , will continue to monitor plan is to wean the patient off oxygen, he has not had any fever for several days, patient encouraged to sleep on prone position however patient is a difficult time due to obesity, will continue present management, patient oxygen requirement is close to 2 to 3L and no fever discharge patient home. (2) Pneumonia due to COVID-19 virus: Code(s): U07.1 - COVID-19; J12.89 - Other viral pneumonia Status: Acute Assessment and Plan: - Continue airborne, droplet, and contact isolation. - Completed ceftriaxone 7 day course and azithromycin 3 day course. - Sputum culture pending. (3) Normocytic anemia: Code(s): D64.9 - Anemia, unspecified Status: Acute Assessment and Plan: - Possible chronic (reports hemorrhoids and occasional small amount of blood in his stool) versus acute. - Stable on review of previous labs, continue to monitor. (4) Type 2 diabetes mellitus without complication, without long-term current use of insulin: Code(s): E11.9 - Type 2 diabetes mellitus without complications Status: Chronic Assessment and Plan: - Patient tells me that he is prediabetic and it is historically been well controlled on metformin. - Glucose reviewed and it has been running high secondary to dexamethasone. - For now we will continue with sliding scale insulin and close monitoring. - Check hemoglobin A1c. (5) Essential (primary) hypertension: Code(s): I10 - Essential (primary) hypertension
[2020-05-16 17:58] LABS: Glucose Point of Care 200 (65-105)
[2020-05-16 21:39] LABS: Glucose Point of Care 190 (65-105)
[2020-05-17] VITALS (9 sets, daily range): BP systolic 112–148; BP diastolic 65–91; PULSE 71–89; RESP 16–20; TEMP 36.4–37.1; O2SAT 92–98
[2020-05-17 06:27] LABS: Hematocrit 36.6 % (42.0-52.0); Hemoglobin 12.6 g/dL (14.0-18.0); Mean Corpuscular HGB Conc 34.4 g/dl (32-36); Mean Corpuscular Hemoglobin 29.6 pg (26-34); Mean Corpuscular Volume 86.1 fl (80-100); Mean Platelet Volume 8.9 fl (7.4-10.4); Platelet Count Result 297 k/mm3 (150-375); Red Blood Count 4.25 M/mm3 (4.6-6.20); Red Cell Distribution Width 11.6 % (11.5-14.5); White Blood Count 11.4 K/mm3 (4.5-10.0)
[2020-05-17 06:56] LABS: Alanine Aminotransferase 112 U/L (4-50); Albumin Level 3.6 g/dL (3.5-5.1); Alkaline Phosphatase 72 U/L (38-126); Anion Gap 8 mmol/L (8-16); Aspartate Amino Transferase 37 U/L (17-59); Bilirubin,Total 0.7 mg/dL (0.2-1.3); Blood Urea Nitrogen 18 mg/dL (9-20); Calcium 9.6 mg/dL (8.4-10.2); Carbon Dioxide 30 mmol/L (22-30); Chloride 98 mmol/L (98-107); Estimated CRCL calculation 136 ml/min; Estimated Glomerular Filt Rate > 60; Glucose 129 mg/dL (75-110); Potassium 4.4 mmol/L (3.4-5.0); Sodium 136 mmol/L (137-145)
[2020-05-17] MEDS: ALBUTEROL SULFATE (*SP) AEROSOL 1 PUFF 2 PUFF INHALATION ×3 (09:30→16:01)
[2020-05-17] MEDS: DEXAMETHASONE SOD PHOS INJ 4 MG/ML VIAL 6 MG IV PUSH (10:39)
[2020-05-17] MEDS: ASCORBIC ACID 250 MG TABLET PO (10:40)
[2020-05-17] MEDS: CHOLECALCIFEROL 1,000 UNITS TABLET 1000 UNITS PO (10:42)
[2020-05-17] MEDS: IRBESARTAN 150 MG TABLET 300 MG PO (10:43)
[2020-05-17] MEDS: ENOXAPARIN 40 MG/0.4 ML SYRINGE SUB-Q ×2 (10:43→21:23)
[2020-05-17] MEDS: THERAPEUTIC MULTIVITAMINS/MINERALS TAB (*BKC) 1 TABLET PO (10:44)
[2020-05-17] MEDS: LOVASTATIN 20 MG TABLET 40 MG PO (10:44)
[2020-05-17] MEDS: PANTOPRAZOLE 40 MG TABLET PO (10:44)
[2020-05-17] MEDS: SACCHAROMYCES BOULARDII 250 MG CAPSULE PO ×2 (10:45→17:29)
[2020-05-17] MEDS: ZINC SULFATE 220 MG CAPSULE PO (10:45)
[2020-05-17] MEDS: guaiFENesin/DEXTROMETHORPHAN 10 ML UDC PO ×2 (10:47→21:24)
[2020-05-17 11:10] LABS: Glucose Point of Care 124 (65-105)
--- NOTE | 2020-05-17 13:52 | PM.IMPN ---
Progress Note: A&P Assessment and Plan (1) Acute respiratory failure: Code(s): J96.00 - Acute respiratory failure, unspecified whether with hypoxia or hypercapnia Status: Acute Assessment and Plan: Acute respiratory failure secondary to COVID-19 pneumonia. - Off Airvo, now on high-flow therapy with nasal cannula at 10 L. - Chest x-ray continues to show diffuse acute bilateral airspace disease. - Continue to encourage prone position as tolerated. - Continue bronchodilators and incentive spirometry. - Continue dexamethasone (initiated 05/04 as outpatient). - Completed 5 day course of remdesivir (initiated 05/05). - Received 1 unit convalescent plasma on 05/09. - Continue vitamin-C, vitamin-D, and zinc supplementation. Pt has been in hospital @ 2 weeks (2) Pneumonia due to COVID-19 virus: Code(s): U07.1 - COVID-19; J12.89 - Other viral pneumonia Status: Acute Assessment and Plan: - Continue airborne, droplet, and contact isolation. - Completed ceftriaxone 7 day course and azithromycin 3 day course. -Sputum culture positive with pseudomonas. Being treated for viral, and bacterial pneumonia. Keep trying to wean off oxygen. Continue present care for now. I will consult ID for further recommendations, due to ongoing deoxygenation. (3) Normocytic anemia: Code(s): D64.9 - Anemia, unspecified Status: Acute Assessment and Plan: - Stable on review of previous labs, continue to monitor. (4) Type 2 diabetes mellitus without complication, without long-term current use of insulin: Code(s): E11.9 - Type 2 diabetes mellitus without complications Status: Chronic Assessment and Plan: - Glucose reviewed and it has been running high secondary to dexamethasone. - For now we will continue with sliding scale insulin and close monitoring. (5) Essential (primary) hypertension: Code(s): I10 - Essential (primary) hypertension Status: Chronic Assessment and Plan: - Blood pressures were reviewed (6) Mixed hyperlipidemia: Code(s): E78.2 - Mixed hyperlipidemia Status: Chronic Assessment and Plan: - On lovastatin. (7) Gastro-esophageal reflux disease without esophagitis: Code(s): K21.9 - Gastro-esophageal reflux disease without esophagitis Status: Chronic Assessment and Plan: - Continue pantoprazole. Subjective Date/time seen: 05/17/20 13:52 Interval history: The patient reported symptoms started 04/28. He tested positive for COVID 05/03. Dyspnea worsened. He was hypoxic on presentation to the emergency department and requiring 2 liters initially. Pt then needed 6.5 liters per nasal cannula. Continue supplemental oxygen to maintain oxygen saturation of >93% and wean as tolerated. Continue IV ceftazidime on board, Iv dexamethasone on board, remdesivir completed, bronchodilators, antitussives, mucinex. Pt feels better, been here 2 weeks, pt was on 5 liters of oxygen this morning now on 10 liters. Pt is on iv ceftazidime and on iv steroids presently. Pt is also on mucinex and zinc. Pt has history of HTN, DM type 2. Sputum culture positive with pseudomonas. Being treated for viral, and bacterial pneumonia. Keep trying to wean off oxygen. Continue present care for now. I will consult ID for further recommendations, due to ongoing deoxygenation. Review of Systems Review of Systems: All systems reviewed & are unremarkable except as noted in HPI and below Exam Narrative: Exam Narrative: Moderately obese on 10 liters Patient is comfortable HEENT: No retraction Heart: Rate and rhythm S1 and S2 L
[2020-05-17] MEDS: INSULIN ASPART (*BKC) 100 UNITS/ML SUB-Q (17:59)
[2020-05-17 18:22] LABS: Glucose Point of Care 223 (65-105)
[2020-05-17 18:30] LABS: Glucose Point of Care 154 (65-105)
[2020-05-17 22:38] LABS: Glucose Point of Care 200 (65-105)
[2020-05-18] VITALS (13 sets, daily range): BP systolic 110–129; BP diastolic 64–81; PULSE 74–122; RESP 18–20; TEMP 36.1–36.2; O2SAT 84–96
[2020-05-18 07:12] LABS: CRP 0.7 mg/dL (<1.0); Lactate Dehydrogenase 465 U/L (313-618)
[2020-05-18] MEDS: DEXAMETHASONE SOD PHOS INJ 4 MG/ML VIAL 6 MG IV PUSH (08:36)
[2020-05-18] MEDS: IRBESARTAN 150 MG TABLET 300 MG PO (08:37)
[2020-05-18] MEDS: THERAPEUTIC MULTIVITAMINS/MINERALS TAB (*BKC) 1 TABLET PO (08:37)
[2020-05-18] MEDS: ENOXAPARIN 40 MG/0.4 ML SYRINGE SUB-Q (08:37)
[2020-05-18] MEDS: ZINC SULFATE 220 MG CAPSULE PO (08:37)
[2020-05-18] MEDS: CHOLECALCIFEROL 1,000 UNITS TABLET 1000 UNITS PO (08:37)
[2020-05-18] MEDS: ASCORBIC ACID 250 MG TABLET PO (08:37)
[2020-05-18] MEDS: LOVASTATIN 20 MG TABLET 40 MG PO (08:37)
[2020-05-18] MEDS: PANTOPRAZOLE 40 MG TABLET PO (08:37)
[2020-05-18] MEDS: SACCHAROMYCES BOULARDII 250 MG CAPSULE PO (08:38)
[2020-05-18 09:32] LABS: Glucose Point of Care 126 (65-105)
[2020-05-18] MEDS: ALBUTEROL SULFATE (*SP) AEROSOL 1 PUFF 2 PUFF INHALATION ×2 (10:12→13:57)
[2020-05-18 11:44] LABS: Glucose Point of Care 172 (65-105)
--- NOTE | 2020-05-18 13:21 | WPDINFPN2 ---
Progress Note: A&P Assessment and Plan (1) Pneumonia due to COVID-19 virus: Code(s): U07.1 - COVID-19; J12.89 - Other viral pneumonia Status: Acute Assessment and Plan: Viral pneumonia due to CoVid 19 REC Pseudomonas is an airway colonizer in this patient and needs no further treatment. Has received all proven therapies. Could go home anytime, with home O2. Subjective Date/time seen: 05/18/20 13:21 Objective Data Vital Signs Vital Signs: Vital Signs - 24 hr 05/17/20 14:16 05/17/20 16:00 05/17/20 20:00 Temperature 36.4 C 37.1 C Pulse Rate 85 88 89 Respiratory Rate 20 20 16 Blood Pressure 114/71 116/67 Pulse Oximetry 92 98 94 05/17/20 21:31 05/18/20 00:00 05/18/20 04:00 Temperature 37.0 C 36.2 C L 36.2 C L Pulse Rate 89 74 97 Respiratory Rate 16 20 20 Blood Pressure 148/91 H 122/66 129/81 Pulse Oximetry 94 91 95 05/18/20 08:00 05/18/20 09:00 05/18/20 10:16 Temperature 36.2 C L Pulse Rate 85 Respiratory Rate 18 Blood Pressure 116/72 Pulse Oximetry 94 95 93 05/18/20 13:11 Temperature 36.1 C L Pulse Rate 89 Respiratory Rate 18 Blood Pressure 110/64 Pulse Oximetry 96 Intake/Output Intake/Output: Intake & Output 05/15/20 05/16/20 05/17/20 05/18/20 23:59 23:59 23:59 23:59 Intake Total 6170 2610 6740 1030 Output Total 6050 4160 7060 1999 Balance 95 -1090 6196 -393 Meds/Results Medications: Active Medications Generic Name Dose Route Start Last Admin Trade Name Freq PRN Reason Stop Dose Admin Acetaminophen 650 mg 05/05/20 21:06 Acetaminophen 325 Mg Tablet PO Q4H PRN Mild Pain (1-3) or Fever Albuterol 2 puff 05/05/20 23:25 05/13/20 02:44 Albuterol Sulfate (*Sp) Aerosol 1 Puff INHALATION 2 puff QIDRT PRN Administration Shortness Of Breath Albuterol 2 puff 05/06/20 08:00 05/18/20 10:12 Albuterol Sulfate (*Sp) Aerosol 1 Puff INHALATION 2 puff QIDRT MAHI Administration Ascorbic Acid 250 mg 05/07/20 09:00 05/18/20 08:37 Ascorbic Acid 250 Mg Tablet PO 250 mg DAILY MAHI Administration Dextrose 12.5 gm 05/06/20 00:05 Dextrose 50% 25 Gm/50 Ml Syringe IV PUSH PRN PRN Hypoglycemia Protocol Enoxaparin Sodium 40 mg 05/06/20 10:45 05/18/20 08:37 Enoxaparin 40 Mg/0.4 Ml Syringe SUB-Q 40 mg Q12HR MAHI Administration Glucagon 1 mg 05/06/20 00:05 Glucagon For Inj 1 Mg Vial IM PRN PRN Hypoglycemia Protocol Glucose 15 gm 05/06/20 00:05 Glucose Oral Gel 15 Gm Of Glucse In 37.5 Gm Tube PO PRN PRN Hypoglycemia Protocol Guaifenesin/Dextromethorphan 10 ml 05/05/20 23:32 05/17/20 21:24 Guaifenesin/Dextromethorphan 10 Ml Udc PO 10 ml Q4H PRN Administration Cough Dextrose 1,000 mls @ 100 mls/hr 05/06/20 00:05 Dextrose 5% 1,000 Ml IVPB PRN PRN Hypoglycemia Protocol Ceftazidime 2 gm in 50 mls @ 100 mls/hr 05/14/20 15:00 05/18/20 06:38 Fortaz 2 Gm/D5w 50 Ml IVPB Infused Q8HR MAHI Infusion Insulin Aspart 3 - 6 units 05/06/20 08:00 05/18/20 12:57 Insulin Aspart (*Bkc) 100 Units/Ml SUB-Q Not Given [facility] Protocol Irbesartan 300 mg 05/06/20 09:00 05/18/20 08:37 Irbesartan 150 Mg Tablet PO 300 mg DAILY MAHI Administration Loratadine 10 mg 05/06/20 00:08 05/06/20 08:12 Loratadine 10 Mg Tablet PO 10 mg DAILY PRN Administration allergy symptoms Lovastatin 40 mg 05/06/20 09:00 05/18/20 08:37 Lovastatin 20 Mg Tablet PO 40 mg DAILY MAHI Administration Multivitamins/Calcium 1 tablet 05/06/20 09:00 05/18/20 08:37 Therapeutic Multivitamins/Minerals Tab (*Bkc) PO 1 tablet DAILY MAHI Administration Ondansetron HCl 4 mg 05/05/20 21:06 Ondansetron Inj 4 Mg/2 Ml Vial IV PUSH Q4H PRN Nausea Pantoprazole Sodium 40 mg 05/06/20 09:00 05/18/20 08:37 Pantoprazole 40 Mg Tablet PO 40 mg QAM MAHI Administration Duane Fuller 250 m
--- NOTE | 2020-05-18 13:28 | PM.DS ---
DS: Admitting Diagnosis Admitting Diagnosis Admitting Diagnosis: COVID Pneumonia DS: Discharge Diagnosis Discharge Diagnosis (1) Acute respiratory failure: Code(s): J96.00 - Acute respiratory failure, unspecified whether with hypoxia or hypercapnia Status: Acute Assessment and Plan: Acute respiratory failure secondary to COVID-19 pneumonia. - Off Airvo, now on high-flow therapy with nasal cannula at 4 liters today - Completed 5 day course of remdesivir (initiated 05/05). - Received 1 unit convalescent plasma on 05/09. - Continue vitamin-C, vitamin-D, and zinc supplementation. Pt has been in hospital @ 2 weeks, seen by ID stable for discharge (2) Pneumonia due to COVID-19 virus: Code(s): U07.1 - COVID-19; J12.89 - Other viral pneumonia Status: Acute Assessment and Plan: - Continue airborne, droplet, and contact isolation. - Completed ceftriaxone 7 day course and azithromycin 3 day course. -Sputum culture positive with pseudomonas. was on iv ceftazidime being treated for viral, and bacterial pneumonia. Stable for discharge as per Dr Painter FLORES with oxygen at home (3) Normocytic anemia: Code(s): D64.9 - Anemia, unspecified Status: Acute Assessment and Plan: - Stable on review of previous labs (4) Type 2 diabetes mellitus without complication, without long-term current use of insulin: Code(s): E11.9 - Type 2 diabetes mellitus without complications Status: Chronic Assessment and Plan: - Glucose reviewed and it has been running high secondary to dexamethasone. - (5) Essential (primary) hypertension: Code(s): I10 - Essential (primary) hypertension Status: Chronic Assessment and Plan: - Blood pressures were reviewed (6) Mixed hyperlipidemia: Code(s): E78.2 - Mixed hyperlipidemia Status: Chronic Assessment and Plan: - On lovastatin. (7) Gastro-esophageal reflux disease without esophagitis: Code(s): K21.9 - Gastro-esophageal reflux disease without esophagitis Status: Chronic Assessment and Plan: - Continue pantoprazole. DS: Summary Time Spent with Patient Time attestation: Total time spent providing and/or coordinating discharge services:40 minutes on day of dischrage Exam Narrative: Exam Narrative: Moderately obese on 4 liters Patient is comfortable HEENT: No retraction Heart: Rate and rhythm S1 and S2 LUNGS: Normal respiratory effort ABD): Moderately obese Lower extremities: no edema SKIN: nonjaundiced Neuro: Normal speech grossly intact. DS: Data Data Completed and Pending Labs on day of discharge: Labs from last 24 hours 05/18/20 05/18/20 05/18/20 11:37 08:43 06:39 D-Dimer POC Capillary Glucose 172 H 126 H Ferritin Lactate Dehydrogenase 465 C-Reactive Protein 0.7 05/18/20 05/18/20 05/17/20 06:39 06:39 21:22 D-Dimer 2.00 H POC Capillary Glucose 200 H Ferritin 227.00 Lactate Dehydrogenase C-Reactive Protein 05/17/20 05/17/20 17:34 12:44 D-Dimer POC Capillary Glucose 223 H 154 H Ferritin Lactate Dehydrogenase C-Reactive Protein Discharge Plan Discharge Attending physician on discharge: Nevaeh Sanders Consulting providers: Abundio Breen Discharging Clinician: Nevaeh Sanders Anticipated Discharge Date/Time: 05/18/20 13:25 Patient Disposition: Home, Self-Care Activity: as tolerated Diet: diabetic Discharge Instructions: PT WILL NEED OXYGEN ON DISCHARGE Patient Instructions: Antibiotic Form, How To Wash Your Hands (GEN), Drop
--- NOTE | 2020-05-18 14:39 | HOMEO2EVAL ---
Home Oxygen Evaluation RC: Home Oxygen (O2) Evaluation Start: 05/18/20 13:24 Freq: ONCE Status: Active Protocol: RPE Activity Type Activity Date Activity User E-Sign Co-Sign Detail Recorded Client Recorded Date Recorded By Document 05/18/20 14:00 [email or web address] [email or web address] 05/18/20 14:38 DJO Document 05/18/20 14:05 DJO [email or web address] 05/18/20 14:38 DJO Document 05/18/20 14:10 DJO [email or web address] 05/18/20 14:38 DJO Document 05/18/20 14:15 DJO [email or web address] 05/18/20 14:38 DJO Document 05/18/20 14:20 DJO [email or web address] 05/18/20 14:38 DJO Document 05/18/20 14:25 [email or web address] [email or web address] 05/18/20 14:38 DJO Document 05/18/20 14:35 [email or web address] [email or web address] 05/18/20 14:38 DJO 05/18/20 05/18/20 05/18/20 14:00 14:05 14:10 Home O2 Evaluation Test Phase Resting Exercise Exercise Oxygen Delivery Room Air Room Air Nasal Cannula Oxygen Flow Rate (L/min) 1 Pulse Oximetry (90-100 %) 90 84 L 86 L Pulse Rate (60-100 beats/min) 100 116 H 118 H Activity Tolerance Rating of Perceived Dyspnea (PD) Treatment Charges O2 Evaluation 05/18/20 05/18/20 05/18/20 14:15 14:20 14:25 Home O2 Evaluation Test Phase Exercise Exercise Exercise Oxygen Delivery Nasal Cannula Nasal Cannula Nasal Cannula Oxygen Flow Rate (L/min) 2 3 4 Pulse Oximetry (90-100 %) 86 L 87 L 90 Pulse Rate (60-100 beats/min) 118 H 122 H Activity Tolerance Excellent Rating of Perceived Dyspnea (PD) +2 Mild, Some Difficulty, Noticeable to the Observer Treatment Charges 05/18/20 14:35 Home O2 Evaluation Test Phase Resting Oxygen Delivery Room Air Oxygen Flow Rate (L/min) Pulse Oximetry (90-100 %) 90 Pulse Rate (60-100 beats/min) 102 H Activity Tolerance Rating of Perceived Dyspnea (PD) Treatment Charges
--- NOTE | 2020-05-18 14:59 | PCRCNOTE ---
HOME O2 SET UP WITH [facility], PHONE NUMBER [phone]. TANK DELIVERED TO ROOM.
--- NOTE | 2020-05-18 17:58 | CONS_ITS ---
DATE OF CONSULTATION: 05/18/2020 REASON FOR CONSULTATION: Persistent hypoxemia. 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 He does wear masks, but is regularly in the households of the offenders. He has had no previous coronavirus testing this year. Due to several days of cough, he had a test performed on April 03, which was reported positive (no written reports available in the medical record). He was admitted to the hospital shortly thereafter due to progressive dyspnea and has been here since. He received 5 days of remdesivir starting on May 05, also convalescent plasma on May 09, and is now on day #14 of dexamethasone. He has persistent O2 need and consultation requested. Sputum culture from several days ago was obtained. He has very little, if any, sputum now. He has no dyspnea on exertion with supplemental O2 and has no PND. No subjective fever, and he has had no rigors nor night sweats. There has been no chest pain. He also has been on antibacterials as noted below. He was treated some 15 to 20 years ago for positive PPD and received 9 months of a medication, presumably isoniazid. He reports his chest x-ray at the time was negative and he had no symptoms. Otherwise, he has had no previous pneumonia nor chronic lung disease. He quit smoking in 2014. His diabetes is usually under excellent control with the help of metformin. He was on no immunosuppressants prior to admission. PRESENT MEDICATIONS: No other immunosuppressants. Since admission, he has received at various times single doses of ceftriaxone and azithromycin with additional doses thereafter, also ceftazidime starting on May 14, which I discontinued yesterday. HABITS: No secondhand smoke exposure. Social drinker. ALLERGIES: BUPROPION. 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 Has had previous microscopic hematuria, type 2 diabetes mellitus, GERD, hyperlipidemia, hypertension, adenomatous polyps, CAROLYN, appendectomy in the distant past. FAMILY HISTORY: Hyperlipidemia, diabetes, Alzheimer's, hypertension. SOCIAL HISTORY: He is , has a 17-year-old daughter. His is a nursing home assistant administrator for [employer]. She has been teaching remotely for the last 2 months. His daughter works at [employer]. He and his both tested positive around the same time at the beginning of this month, and his daughter also has been tested positive subsequently several days later. Both are working once again and fortunately have not had to be hospitalized. The patient lives locally. Works as above. REVIEW OF SYSTEMS: Obesity, hyperglycemia while here and on the dexamethasone, shortness of breath, edema. 14-point review otherwise negative. PHYSICAL EXAMINATION: GENERAL: This is a middle-aged male who appears his actual age on 4 L. No respiratory distress while seated. VITAL SIGNS: His temperature curve has been in the normal range consistently, and currently afebrile, 110/64, 89, 18, 96% on 4 L. SKIN: No rashes. Warm and dry. NODES: No cervical adenopathy. EENT: Pupils equal, round, and reactive to light. The conjunctivae are normal. The oropharynx, oral mucosa normal. Teeth in excellent repair. NECK: No adenopathy, thyromegaly, meningismus. LUNGS: Clear to auscultation and percussion. Good air entry. He has no egophony, no fremitus changes, clear to percussion. CHEST: Equal expansion. Normal AP diameter. No indwelling vascular devices. CARDIAC: Regular rate and rhythm. No murmur, gallop, or rub. Pulses are 2+
== END 2020-05-18 15:40 | disposition home or self-care (01) | DRG 871 ==
LOC: ANHED 21:09 → ANH3MEDSUR 05-06 01:21 → ANHICU 05-08 07:22 → ANHIMU 05-16 09:00 → ANH3MEDSUR 05-18 13:28 → ANHICU 05-20 09:44 → ANHIMU 05-20 09:44
PROVIDERS: Emergency Medicine; Internal Medicine; Physician Assistant; Admitting Provider Family Medicine; Emergency Provider Family Medicine; PCP Family Medicine; Visit Provider Family Medicine
DX: A41.89 Other specified sepsis (principal); U07.1 COVID-19; J12.89 Other viral pneumonia; J96.01 Acute respiratory failure with hypoxia; E87.2 Acidosis; R65.20 Severe sepsis without septic shock; I10 Essential (primary) hypertension; K21.9 Gastro-esophageal reflux disease without esophagitis; E78.5 Hyperlipidemia, unspecified; G47.33 Obstructive sleep apnea (adult) (pediatric); Z87.891 Personal history of nicotine dependence; D64.9 Anemia, unspecified; E78.2 Mixed hyperlipidemia; R94.5 Abnormal results of liver function studies; Z79.84 Long term (current) use of oral hypoglycemic drugs; K64.9 Unspecified hemorrhoids; E66.9 Obesity, unspecified; E11.65 Type 2 diabetes mellitus with hyperglycemia; Z68.30 Body mass index [BMI] 30.0-30.9, adult
CPT/HCPCS: 36415; 36430; 36600; 71045; 80053; 82375; 82550; 82728; 82805; 83036; 83050; 83605; 83615; 83735; 83880; 84100; 85025; 85027; 85380; 85610; 85730; 86140; 86738; 86900; 86901; 87040; 87070; 87077; 87186; 87205; 87449; 87899; 93005; 94618; 94640; 99285; A9270; J0456; J0696; J0713; J1100; J1650; J1815; J1940; J7030; J7050; P9059

== ENCOUNTER → 2020-09-10 01:43 | Outpatient (CLI) | payer OTHER, SELFPAY ==
[2020-09-10 18:53] LABS: SARS-CoV-2 RNA PCR Negative
== END ==
PROVIDERS: PCP Family Medicine; Visit Provider Internal Medicine Gastroenterology
DX: Z01.812 Encounter for preprocedural laboratory examination (principal); Z20.822 Contact with and (suspected) exposure to COVID-19
CPT/HCPCS: C9803; U0003; U0005

== ENCOUNTER 2020-09-13 01:27 | Day surgery (SDC) | payer OTHER, SELFPAY ==
[2020-08-30 10:41] VITALS: BMI 38.4
[2020-09-13 07:08] VITALS: BP 134/86; PULSE 94; RESP 16; TEMP 35.9; O2SAT 96; BMI 38.7
[2020-09-13] MEDS: LACTATED RINGERS 1,000 ML 150 ML IV CONT (07:29)
[2020-09-13 07:32] LABS: Glucose Point of Care 119 (65-105)
--- NOTE | 2020-09-13 07:43 | WPDANESEPPF ---
Anes - Initial Pre Proc Eval Procedure: Operation Date: 09/13/20 08:30 Proposed Procedures p Screening Colonoscopy - Maury Zamarripa MD Date/Time: 09/13/20 07:43 Surgeon: Maury Zamarripa MD Pre Op Diagnosis: Hx of Colon polyps, Neosplam Screening Patient Data Age: 50 Gender: M Height: 6 ft 5 in Weight: 148.2 kg Last Vital Signs Temp 96.7 F L 09/13/20 07:08 Pulse 94 09/13/20 07:08 Resp 16 09/13/20 07:08 BP 134/86 09/13/20 07:08 Pulse Ox 96 09/13/20 07:08 Allergies Allergy/AdvReac Type Severity Reaction Status Date / Time bupropion AdvReac Unknown Hypertensio Verified 09/13/20 07:08 n Home Medications Medication Instructions Recorded Confirmed Type multivitamin,hx-ewls-wyxmlluh 1 tablet PO DAILY 05/20/19 09/13/20 History loratadine 10 mg tablet 10 mg PO DAILY PRN 10/20/19 09/13/20 History irbesartan 300 mg tablet 300 mg PO DAILY #90 tablet 04/26/20 09/13/20 Rx lovastatin 40 mg tablet 40 mg PO DAILY #90 tablet 04/26/20 09/13/20 Rx metformin 500 mg tablet,extended 2,000 mg PO DAILY #360 tablet 04/26/20 09/13/20 Rx release 24 hr omeprazole 20 mg capsule,delayed 20 mg PO DAILY #90 cap 04/26/20 09/13/20 Rx release sildenafil (pulm.hypertension) 20 100 mg PO ONCE PRN #90 tablet 04/26/20 09/13/20 Rx mg tablet albuterol sulfate [Proventil HFA] 2 puff INHALATION QIDRT #1 inh 05/18/20 09/13/20 Rx ascorbic acid (vitamin C) [Vitamin 250 mg PO DAILY #30 tablet 05/18/20 09/13/20 Rx C] Laboratory Tests 09/13/20 07:26 POC Capillary Glucose 119 mg/dl H mg/dl (65-105) Patient hx anesthesia problems: none Family hx anesthesia problems: none PMFSH Past Medical History Medical History (Updated 06/01/20 @ 15:51 by Reji Xiao MD) Abnormal fasting glucose Asymptomatic microscopic hematuria BMI 37.0-37.9, adult COVID-19 Diabetes type 2, controlled Elevated blood lead level Encounter for prostate cancer screening GERD (gastroesophageal reflux disease) Hyperlipidemia Hypertension Multiple adenomatous polyps Obstructive sleep apnea Surgical History Surgical History History of appendectomy Family History Family History Grandparent Diabetes mellitus Family history of cardiovascular disease Family history of Alzheimer's disease, Onset Age: 82 Family history of dementia Mother Hypertension Patient's mother is in good health Father Family history of elevated blood lipids Social History Social History Smoking packs per day: 1.5 Smoking cigarettes per day: 30.0 Years smoked: 20 Smoking pack-years: 30.00 Smoking status: Former smoker Tobacco type: cigarettes Smoking end date: 10/29/14 Alcohol intake: current Drinks per week: 2 Substance use: never Substance use type: does not use Living arrangements: with family Gender identity (if verbalized by the patient): Male Spiritual care concerns: No Anes - Eval Final PreProcedure Day of Procedure 09/13/20 07:43 Patient weight: obese Heart: regular rate and rhythm Lungs: clear to auscultation Airway: Mallampati scale class II Neurological: alert and oriented Last oral intake: >/= 8 hours ASA classification: III Emergent: no Anesthetic plan: proceed Anesthesia type and monitoring: general GIVS and standard monitoring Informed Consent: The patient's anesthetic plan and its attendant risks and benefits were discussed with the patient/family/POA. Questions were solicited and answers provided to the satisfaction of the patient/family/POA.
--- NOTE | 2020-09-13 08:24 | PM.HPGS ---
History of Present Illness History of Present Illness Consent: Risks, benefits, and alternatives have been discussed and questions answered. Patient agrees to proceed with procedure. Chief complaint: Hx of Colon polyps, Neosplam Screening Narrative: Matthias Smith is a 50 year old male with several polyps removed 1 year ago Review of Systems Constitutional: Constitutional: Denies headache(s) and Denies weakness Eyes: Eyes: Denies blurry vision ENT: Reports Normal hearing present, Denies headache(s) and Denies neck pain Cardiovascular: Cardiovascular: Denies chest pain and Denies dyspnea Respiratory: Respiratory: Denies dyspnea Gastrointestinal: Gastrointestinal: Reports no additional gastrointestinal complaints Genitourinary: Genitourinary: Denies dysuria Musculoskeletal: Musculoskeletal: Denies neck pain Integumentary/Breasts: Skin/Breast: Denies dry skin Neurologic: Reports Normal hearing present, Denies headache(s) and Denies weakness Psychiatric: Psychiatric: Denies anxiety Endocrine: Endocrine: Denies change in body appearance Hematologic/Lymphatic: Hematologic/Lymphatic: Denies easy bleeding Allergic/Immunologic: Allergic/Immunologic: Denies urticaria PMFSH Past Medical History Medical History (Updated 09/13/20 @ 08:24 by Maury Zamarripa MD) Abnormal fasting glucose Adenomatous colon polyp Asymptomatic microscopic hematuria BMI 37.0-37.9, adult COVID-19 Diabetes type 2, controlled Elevated blood lead level Encounter for prostate cancer screening GERD (gastroesophageal reflux disease) Hyperlipidemia Hypertension Multiple adenomatous polyps Obstructive sleep apnea Surgical History Surgical History History of appendectomy Family History Family History Grandparent Diabetes mellitus Family history of cardiovascular disease Family history of Alzheimer's disease, Onset Age: 82 Family history of dementia Mother Hypertension Patient's mother is in good health Father Family history of elevated blood lipids Social History Social History Smoking packs per day: 1.5 Smoking cigarettes per day: 30.0 Years smoked: 20 Smoking pack-years: 30.00 Smoking status: Former smoker Tobacco type: cigarettes Smoking end date: 10/29/14 Alcohol intake: current Drinks per week: 2 Substance use: never Substance use type: does not use Living arrangements: with family Gender identity (if verbalized by the patient): Male Spiritual care concerns: No Meds Home Medications and Allergies Home Medications Medication Instructions Recorded Confirmed Type multivitamin,gb-yvhf-vpphirfy 1 tablet PO DAILY 05/20/19 09/13/20 History loratadine 10 mg tablet 10 mg PO DAILY PRN 10/20/19 09/13/20 History irbesartan 300 mg tablet 300 mg PO DAILY #90 tablet 04/26/20 09/13/20 Rx lovastatin 40 mg tablet 40 mg PO DAILY #90 tablet 04/26/20 09/13/20 Rx metformin 500 mg tablet,extended 2,000 mg PO DAILY #360 tablet 04/26/20 09/13/20 Rx release 24 hr omeprazole 20 mg capsule,delayed 20 mg PO DAILY #90 cap 04/26/20 09/13/20 Rx release sildenafil (pulm.hypertension) 20 100 mg PO ONCE PRN #90 tablet 04/26/20 09/13/20 Rx mg tablet albuterol sulfate [Proventil HFA] 2 puff INHALATION QIDRT #1 inh 05/18/20 09/13/20 Rx ascorbic acid (vitamin C) [Vitamin 250 mg PO DAILY #30 tablet 05/18/20 09/13/20 Rx C] Allergies Allergy/AdvReac Type Severity Reaction Status Date / Time bupropion AdvReac Unknown Hypertensio Verified 09/13/20 07:08 n Vital Signs Vital Signs - 24 hr 09/13/20 07:08 Temperature 96.7 F L Pulse Rate 94 Respiratory Rate 16 Blood Pressure 134/86 Pulse Oximetry 96 Exam Const: General: comfortable and no acute distress HENMT: General nose exam: Normal nares present Eyes: General
[2020-09-13 09:13] VITALS: BP 131/90; PULSE 70; RESP 21; O2SAT 98
[2020-09-13 09:23] VITALS: BP 103/71; PULSE 88; RESP 20; O2SAT 98
[2020-09-13 09:33] VITALS: BP 122/81; PULSE 84; RESP 21; O2SAT 98
== END 2020-09-13 09:38 | disposition home or self-care (01) ==
PROVIDERS: PCP Family Medicine; Visit Provider Internal Medicine Gastroenterology
PROC: 0DJD8ZZ Inspection of Lower Intestinal Tract, Via Natural or Artificial Opening Endoscopic (ICD-10-PCS; CPT 45378; principal; 2020-09-13 08:30)
DX: Z12.11 Encounter for screening for malignant neoplasm of colon (principal); D12.3 Benign neoplasm of transverse colon; I10 Essential (primary) hypertension; E78.5 Hyperlipidemia, unspecified; K21.9 Gastro-esophageal reflux disease without esophagitis; E11.9 Type 2 diabetes mellitus without complications; G47.33 Obstructive sleep apnea (adult) (pediatric); Z86.16 Personal history of COVID-19; Z79.84 Long term (current) use of oral hypoglycemic drugs; Z87.891 Personal history of nicotine dependence; E66.9 Obesity, unspecified; Z68.38 Body mass index [BMI] 38.0-38.9, adult
CPT/HCPCS: 45385; 82948; 88305; C9803; J2001; J2704; J7120; U0003; U0005

== ENCOUNTER 2021-06-02 10:02 | Emergency (ER) | payer OTHER, SELFPAY ==
[2021-06-02 10:21] VITALS: BP 151/99; PULSE 81; RESP 20; TEMP 36.6; O2SAT 96
--- NOTE | 2021-06-02 12:25 | ED.URI ---
HPI - URI/Sore Throat General Chief Complaint: Upper Respiratory Infection Stated Complaint: Sinus,Congestion Source: patient and RN notes reviewed Limitations: no limitations History of Present Illness HPI Narrative: The obese patient, a ex-smoker/occasional drinker on several meds, presents with couple day worsening of several week history sinus headache and congestion, mildly hoarse voice. This was associated yellow sputum production, and at onset of sore throat -which is resolved. No fever, earache, cough; no loss of taste/smell, CP, vomiting/diarrhea, S OB?he is unvaccinated but had past Covid illness. Patient was hospitalized with Covid and bacterial pneumonia last May. Related Data Home Medications Medication Instructions Recorded Confirmed multivitamin,yg-dhoj-iuszhiwr 1 tablet PO DAILY 05/20/19 06/02/21 loratadine 10 mg tablet 10 mg PO DAILY PRN 10/20/19 06/02/21 Allergies Allergy/AdvReac Type Severity Reaction Status Date / Time bupropion AdvReac Intermediate Hypertensio Verified 06/02/21 10:26 n Review of Systems Review of Systems: General/Constitutional: No weight loss,fever Eyes: N0: Redness,discharge Ears/Nose/Throat: No: Epistaxis,ear discharge Respiratory: Denies: Hemoptysis Gastrointestinal: No Vomiting, Bleeding-rectal Skin: No Lumps, eruption Neurologic: No Focal Weakness,Sz Hematologic: Denies: Petechiae/Purpura Psychiatric: No: Suicida ideationl All Other Systems: Reviewed and Negative [facility] Past Medical History Medical History (Updated 06/02/21 @ 12:26 by Mukesh Ordonez MD) Acute respiratory failure Adenomatous colon polyp Asymptomatic microscopic hematuria BMI 37.0-37.9, adult BMI 38.0-38.9,adult Colon cancer screening COVID-19 (05/03/20) COVID antibody test positive at 1639 on 01/24/2021. 1555 on 05/16/2021 Diabetes type 2, controlled Elevated blood lead level Elevated lactic acid level Encounter for prostate cancer screening Exposure to lead GERD (gastroesophageal reflux disease) Hyperlipidemia Multiple adenomatous polyps (04/09/19) multiple polyps on colonoscopy 04/09/2019. tubular adenoma transverse colon on 09/13/2020 with recheck in 3 years Obstructive sleep apnea Severe sepsis Surgical History Surgical History History of appendectomy Family History Family History Grandparent Diabetes mellitus Family history of cardiovascular disease Family history of Alzheimer's disease, Onset Age: 82 Family history of dementia Mother Hypertension Patient's mother is in good health Father Family history of elevated blood lipids Social History Social History (Updated 05/02/21 @ 10:46 by Moira Moseley MA) Smoking packs per day: 1.5 Smoking cigarettes per day: 30.0 Years smoked: 20 Smoking pack-years: 30.00 Smoking status: Former smoker ( quit smoking 2014) Tobacco type: cigarettes Smoking end date: 10/29/14 Alcohol intake: current Drinks per week: 2 Alcohol use details: whiskey and diet coke Substance use: never Substance use type: does not use Gender identity (if verbalized by the patient): Male Spiritual care concerns: No Comments At time of signature, agree with nursing past medical, surgical, social and family history. There is no relevant family history pertinent to the presenting complaint Exam Narrative: General Appearance: Well appearing, Well nourished EYE: PERRLA, Conjunctiva clear Ears: Auditory canal normal, TM normal Nose: Rhinorrhea, Mucousal erythema Mouth/Throat: MM moist, Uvula midline, Pharyngeal erythema Neck: Supple, No adenopathy Respiratory: No respiratory distress, increased AP diameter, CTA with decreased BS at bases Cardiovascular: RRR, No JVD Musculoskeletal: Non tender, Normal strength Skin: Warm, Dry Neurological: A&O x3, CN II-XII intact Psychiatric: Peyton
[2021-06-03 18:54] LABS: SARS-CoV-2 RNA PCR Negative
== END 2021-06-02 12:30 | disposition home or self-care (01) ==
PROVIDERS: Emergency Provider Emergency Medicine; PCP Family Medicine
DX: J32.9 Chronic sinusitis, unspecified (principal); E11.9 Type 2 diabetes mellitus without complications; E78.5 Hyperlipidemia, unspecified; Z87.891 Personal history of nicotine dependence; Z20.822 Contact with and (suspected) exposure to COVID-19
CPT/HCPCS: 99213; C9803; G0463; U0003; U0005

== ENCOUNTER 2021-12-03 10:26 | Emergency (ER) | payer OTHER, SELFPAY ==
[2021-12-03 10:40] VITALS: BP 147/81; PULSE 96; RESP 16; TEMP 36.6; O2SAT 97
--- NOTE | 2021-12-03 10:48 | ED.LOWEXIN ---
HPI - Extremity Injury (Lower) General Chief Complaint: Extremity Injury, Lower Stated Complaint: lower extremity injury Time Seen by Provider: 12/03/21 10:49 Source: patient and RN notes reviewed Mode of arrival: ambulatory Limitations: no limitations History of Present Illness HPI Narrative: 51-year-old male presents to the [facility] with complaints of redness and pain to the left anterior lower leg. Patient reports on November 18 he hit the anterior leg when he was on an amusement park ride. Has been picking at the scab. For the last couple of days its become more red and painful. Patient is a diabetic. No fluctuance noted. No drainage noted. Related Data Home Medications Medication Instructions Recorded Confirmed multivitamin,is-kwos-finnrvfh 1 tablet PO DAILY 05/20/19 12/03/21 (Complete Multivitamin tablet) loratadine 10 mg tablet (Allergy 10 mg PO DAILY PRN allergy symptoms 10/20/19 12/03/21 Relief (loratadine)) Allergies Allergy/AdvReac Type Severity Reaction Status Date / Time bupropion AdvReac Intermediate Hypertensio Verified 12/03/21 10:42 n Review of Systems Review of Systems: All systems reviewed & are unremarkable except as noted in HPI and below Constitutional: Constitutional: Reports no additional constitutional complaints, Denies chills and Denies fever(s) Eyes: Eyes: Reports no additional eye complaints ENT: Reports system reviewed and no additional complaints, except as documented Cardiovascular: Cardiovascular: Reports no additional cardiovascular complaints Respiratory: Respiratory: Reports no additional respiratory complaints Gastrointestinal: Gastrointestinal: Reports no additional gastrointestinal complaints Musculoskeletal: Musculoskeletal: Reports no additional musculoskeletal complaints Integumentary/Breasts: Skin/Breast: Reports as per HPI (Redness, left anterior lower leg) Neurologic: Reports system reviewed and no additional complaints, except as documented Psychiatric: Psychiatric: Reports no additional psychiatric complaints Allergic/Immunologic: Allergic/Immunologic: Reports no additional allergic/immunologic complaints [facility] Past Medical History Medical History Acute respiratory failure Adenomatous colon polyp Asymptomatic microscopic hematuria BMI 37.0-37.9, adult BMI 38.0-38.9,adult Colon cancer screening COVID-19 (05/03/20) COVID antibody test positive at 1639 on 01/24/2021. 1555 on 05/16/2021 Diabetes type 2, controlled Elevated blood lead level Lead level elevated at 9.2 with normal less than 3.5 on 10/25/2021. Elevated lactic acid level Encounter for prostate cancer screening Exposure to lead GERD (gastroesophageal reflux disease) Hyperlipidemia Morbid obesity with BMI of 40.0-44.9, adult Multiple adenomatous polyps (04/09/19) multiple polyps on colonoscopy 04/09/2019. tubular adenoma transverse colon on 09/13/2020 with recheck in 3 years Obstructive sleep apnea Severe sepsis Surgical History Surgical History History of appendectomy Family History Family History Grandparent Diabetes mellitus Family history of cardiovascular disease Family history of Alzheimer's disease, Onset Age: 82 Family history of dementia Mother Hypertension Patient's mother is in good health Father Family history of elevated blood lipids Social History Social History Smoking packs per day: 1.5 Smoking cigarettes per day: 30.0 Years smoked: 20 Smoking pack-years: 30.00 Smoking status: Former smoker Tobacco type: cigarettes Smoking end date: 10/29/14 Alcohol intake: current Drinks per week: 2 Alcohol use details: whiskey and diet coke Substance use: never Substance use type: does not use Gender identity (if v
== END 2021-12-03 11:01 | disposition home or self-care (01) ==
PROVIDERS: Emergency Provider Nurse Practitioner; PCP Family Medicine
DX: L03.116 Cellulitis of left lower limb (principal); E11.9 Type 2 diabetes mellitus without complications; K21.9 Gastro-esophageal reflux disease without esophagitis; E78.5 Hyperlipidemia, unspecified; E66.01 Morbid (severe) obesity due to excess calories; Z68.43 Body mass index [BMI] 50.0-59.9, adult; G47.33 Obstructive sleep apnea (adult) (pediatric); Z87.891 Personal history of nicotine dependence; Z86.16 Personal history of COVID-19
CPT/HCPCS: 99213; G0463

== ENCOUNTER 2023-01-04 16:16 | Emergency (ER) | payer OTHER, SELFPAY ==
[2023-01-04 16:28] VITALS: BP 154/95; PULSE 110; RESP 18; TEMP 36.6; O2SAT 98
[2023-01-04 16:31] VITALS: BP 154/95; PULSE 110; RESP 18; TEMP 36.6; O2SAT 98
--- NOTE | 2023-01-04 16:54 | ED.GENADULT ---
HPI - General Adult General Chief complaint: Wound/Laceration Stated complaint: wound check Time Seen by Provider: 01/04/23 16:35 Source: patient and RN notes reviewed Mode of arrival: ambulatory Limitations: no limitations History of Present Illness HPI narrative: Patient presents today complaining of some swelling to his right forearm. One month ago he struck it and scraped it on a tool box. States it had been improving, but 10 days ago the area started to swell. Denies pain. He has not tried any pxaq-hpt-pcpfruv interventions prior to arrival. Related Data Home Medications Medication Instructions Recorded Confirmed multivitamin,tl-yvag-tsrnvcor 1 tablet PO DAILY 05/20/19 01/04/23 (Complete Multivitamin tablet) loratadine 10 mg tablet (Allergy 10 mg PO DAILY PRN allergy symptoms 10/20/19 01/04/23 Relief (loratadine)) anastrozole 1 mg tablet 1 mg PO DAILY 11/13/22 01/04/23 clomiphene citrate 50 mg tablet 25 mg PO . Saturday and Saturday11/13/22 01/04/23 (Clomid) testosterone cypionate 200 mg/mL 200 mg IM ONCE 11/13/22 01/04/23 intramuscular oil Allergies Allergy/AdvReac Type Severity Reaction Status Date / Time bupropion AdvReac Intermediate Hypertensio Verified 01/04/23 16:28 n Review of Systems Review of Systems: CONSTITUTIONAL: Denies body aches, fever, chills, or sweats. EYES: Denies visual changes, redness, or discharge. ENT: Denies rhinorrhea, congestion, sore throat, or otalgia. CARDIOVASCULAR: Denies chest pain, palpitations, or edema. RESPIRATORY: Denies cough or dyspnea. GASTROINTESTINAL: Denies abdominal pain, nausea, vomiting, or diarrhea. GENITOURINARY: Denies dysuria or hematuria. SKIN: + right forearm swelling MUSCULOSKELETAL: Denies back pain, joint pain, or myalgia. NEUROLOGIC: Denies headache, numbness, tingling, or weakness. PSYCH: Denies depression or anxiety. [facility] Past Medical History Medical History Acute respiratory failure Adenomatous colon polyp Asymptomatic microscopic hematuria BMI 37.0-37.9, adult BMI 38.0-38.9,adult Colon cancer screening COVID-19 (05/03/20) COVID antibody test positive at 1639 on 01/24/2021. 1555 on 05/16/2021 Diabetes type 2, controlled Elevated blood lead level Lead level elevated at 9.2 with normal less than 3.5 on 10/25/2021. Lead level is slightly elevated at 5.4 on 04/30/2022. Elevated lactic acid level Encounter for prostate cancer screening PSA 0.58 on 04/30/2022. Exposure to lead GERD (gastroesophageal reflux disease) Hyperlipidemia Morbid obesity with BMI of 40.0-44.9, adult Multiple adenomatous polyps (04/09/19) multiple polyps on colonoscopy 04/09/2019. tubular adenoma transverse colon on 09/13/2020 with recheck in 3 years Obstructive sleep apnea Severe sepsis URI (upper respiratory infection) Surgical History Surgical History History of appendectomy Family History Family History Grandparent Diabetes mellitus Family history of cardiovascular disease Family history of Alzheimer's disease, Onset Age: 82 Family history of dementia Mother Hypertension Patient's mother is in good health Father Family history of elevated blood lipids Social History Social History Smoking packs per day: 1.5 Smoking cigarettes per day: 30.0 Years smoked: 20 Smoking pack-years: 30.00 Smoking status: Former smoker Tobacco type: cigarettes Smoking end date: 10/29/14 Alcohol intake: current Drinks per week: 2 Alcohol use details: whiskey and diet coke Substance use: never Substance use type: does not use Lack of Transportation: No Lack of Food: Never True Current Housing: I Have Housing Concerned About Future Housing: No Difficulty Paying Gas/Electric Bi
== END 2023-01-04 17:16 | disposition home or self-care (01) ==
PROVIDERS: Emergency Provider Nurse Practitioner; PCP Family Medicine
DX: S50.11XA Contusion of right forearm, initial encounter (principal); W22.8XXA Striking against or struck by other objects, initial encounter; E11.9 Type 2 diabetes mellitus without complications; Z79.84 Long term (current) use of oral hypoglycemic drugs; K21.9 Gastro-esophageal reflux disease without esophagitis; E78.5 Hyperlipidemia, unspecified; E66.01 Morbid (severe) obesity due to excess calories; Z68.41 Body mass index [BMI] 40.0-44.9, adult; Z87.891 Personal history of nicotine dependence
CPT/HCPCS: 10160; 99212; G0463

== ENCOUNTER 2023-12-17 00:26 | Day surgery (SDC) | payer OTHER, SELFPAY ==
[2023-12-05 11:12] VITALS: BMI 39.7
[2023-12-17 06:35] VITALS: BP 162/102; PULSE 90; RESP 18; TEMP 35.9; O2SAT 98; BMI 41.5
--- NOTE | 2023-12-17 07:00 | WPDANESEPPF ---
Anes - Initial Pre Proc Eval Procedure: Operation Date: 12/17/23 08:00 Proposed Procedures p Colonoscopy - Maury Zamarripa MD Date/Time: 12/17/23 07:00 Surgeon: Maury Zamarripa MD Pre Op Diagnosis: Personal HX colon polyps Patient Data Age: 53 Gender: M Height: 1.96 m Weight: 158.9 kg Last Vital Signs Temp 35.9 C L 12/17/23 06:35 Pulse 90 12/17/23 06:35 Resp 18 12/17/23 06:35 BP 162/102 H 12/17/23 06:35 Pulse Ox 98 12/17/23 06:35 O2 Del Method Room Air 12/17/23 06:35 Allergies Allergy/AdvReac Type Severity Reaction Status Date / Time bupropion AdvReac Intermediate Hypertensio Verified 12/17/23 06:45 n Home Medications Medication Instructions Recorded Confirmed Type multivitamin,[id number]-[id number] 1 tablet PO DAILY 05/20/19 12/17/23 History (Complete Multivitamin tablet) loratadine 10 mg tablet (Allergy 10 mg PO DAILY PRN allergy symptoms 10/20/19 12/17/23 History Relief (loratadine)) sildenafil (pulm.hypertension) 20 100 mg PO ONCE PRN sexual activity 08/21/22 12/17/23 Rx mg tablet #90 tabs irbesartan 300 mg tablet 300 mg PO DAILY #90 tabs 02/25/23 12/17/23 Rx lovastatin 40 mg tablet 40 mg PO DAILY #90 tabs 02/25/23 12/17/23 Rx metformin 500 mg tablet,extended 2,000 mg PO DAILY #360 tabs 02/25/23 12/17/23 Rx release 24 hr omeprazole 40 mg capsule,delayed 40 mg PO DAILY #90 caps 05/29/23 12/17/23 Rx release amlodipine 5 mg tablet 5 mg PO . q.a.m. #30 tabs 09/23/23 12/17/23 Rx semaglutide 1 mg/dose (4 mg/3 mL) 1 mg (0.75 mL) subcut WEEKLY #3 mL 12/09/23 12/17/23 Rx subcutaneous pen injector (Ozempic) Patient hx anesthesia problems: none Family hx anesthesia problems: none Results Review: All pre-operative results and documents have been reviewed as part of the pre-operative evaluation. [facility] Past Medical History Medical History Acute respiratory failure Adenomatous colon polyp Asymptomatic microscopic hematuria Normal urinalysis on 05/27/2023. BMI 37.0-37.9, adult BMI 38.0-38.9,adult Colon cancer screening COVID-19 (05/03/20) COVID antibody test positive at 1639 on 01/24/2021. 1555 on 05/16/2021 Diabetes type 2, controlled Elevated blood lead level Lead level elevated at 9.2 with normal less than 3.5 on 10/25/2021. Lead level is slightly elevated at 5.4 on 04/30/2022. Elevated lactic acid level Encounter for prostate cancer screening PSA 0.58 on 04/30/2022. PSA 0.88 on 05/27/2023. Exposure to lead GERD (gastroesophageal reflux disease) Hyperlipidemia Morbid obesity with BMI of 40.0-44.9, adult Multiple adenomatous polyps (04/09/19) multiple polyps on colonoscopy 04/09/2019. tubular adenoma transverse colon on 09/13/2020 with recheck in 3 years Normocytic anemia Hemoglobin normal at 13.8 on 04/30/2022. Hemoglobin normal at 14.6 with MCV 83.6 on 05/27/2023. Obstructive sleep apnea Treated with tonsillectomy and uvuloplasty. Pneumonia due to COVID-19 virus Severe sepsis URI (upper respiratory infection) Surgical History Surgical History History of appendectomy Family History Family History Grandparent Diabetes mellitus Family history of cardiovascular disease Family history of Alzheimer's disease, Onset Age: 82 Family history of dementia Mother Hypertension Patient's mother is in good health Father Family history of elevated blood lipids Social History Social History Smoking packs per day: 1 Smoking cigarettes per day: 20.0 Years smoked: 20 Smoking pack-years: 20.00 Smoking status: Former smoker Tobacco type: cigarettes Smoking end date: 10/29/14 Alcohol intake: current Drinks per week: 3 Alcohol use details: mariam french Substance use: never Subst
[2023-12-17] MEDS: LACTATED RINGERS 1,000 ML 150 ML IV CONT (07:01)
[2023-12-17 07:04] LABS: Glucose Point of Care 151 mg/dl (65-105)
--- NOTE | 2023-12-17 07:58 | PM.HPGS ---
History of Present Illness History of Present Illness Consent: Risks, benefits, and alternatives have been discussed and questions answered. Patient agrees to proceed with procedure. Chief complaint: Personal HX colon polyps Narrative: Matthias Smith is a 53 year old male with colon polyp in 2020 Review of Systems Review of Systems: All systems reviewed & are unremarkable except as noted in HPI and below PMFSH Past Medical History Medical History Acute respiratory failure Adenomatous colon polyp Asymptomatic microscopic hematuria Normal urinalysis on 05/27/2023. BMI 37.0-37.9, adult BMI 38.0-38.9,adult Colon cancer screening COVID-19 (05/03/20) COVID antibody test positive at 1639 on 01/24/2021. 1555 on 05/16/2021 Diabetes type 2, controlled Elevated blood lead level Lead level elevated at 9.2 with normal less than 3.5 on 10/25/2021. Lead level is slightly elevated at 5.4 on 04/30/2022. Elevated lactic acid level Encounter for prostate cancer screening PSA 0.58 on 04/30/2022. PSA 0.88 on 05/27/2023. Exposure to lead GERD (gastroesophageal reflux disease) Hyperlipidemia Morbid obesity with BMI of 40.0-44.9, adult Multiple adenomatous polyps (04/09/19) multiple polyps on colonoscopy 04/09/2019. tubular adenoma transverse colon on 09/13/2020 with recheck in 3 years Normocytic anemia Hemoglobin normal at 13.8 on 04/30/2022. Hemoglobin normal at 14.6 with MCV 83.6 on 05/27/2023. Obstructive sleep apnea Treated with tonsillectomy and uvuloplasty. Pneumonia due to COVID-19 virus Severe sepsis URI (upper respiratory infection) Surgical History Surgical History History of appendectomy Family History Family History Grandparent Diabetes mellitus Family history of cardiovascular disease Family history of Alzheimer's disease, Onset Age: 82 Family history of dementia Mother Hypertension Patient's mother is in good health Father Family history of elevated blood lipids Social History Social History Smoking packs per day: 1 Smoking cigarettes per day: 20.0 Years smoked: 20 Smoking pack-years: 20.00 Smoking status: Former smoker Tobacco type: cigarettes Smoking end date: 10/29/14 Alcohol intake: current Drinks per week: 3 Alcohol use details: whiskey and diet coke Substance use: never Substance use type: does not use Lack of Transportation: No Lack of Food: Never True Current Housing: I Have Housing Concerned About Future Housing: No Difficulty Paying Gas/Electric Bills: No Difficulty Paying for Meds: No Currently Unemployed: No Education: Bachelor's Degree Difficulty w/ Childcare or Family Care: No Living arrangements: with friend(s) Gender identity (if verbalized by the patient): Male Spiritual care concerns: No Meds Home Medications and Allergies Home Medications Medication Instructions Recorded Confirmed Type multivitamin,kx-kxde-emcfnhve 1 tablet PO DAILY 05/20/19 12/17/23 History (Complete Multivitamin tablet) loratadine 10 mg tablet (Allergy 10 mg PO DAILY PRN allergy symptoms 10/20/19 12/17/23 History Relief (loratadine)) sildenafil (pulm.hypertension) 20 100 mg PO ONCE PRN sexual activity 08/21/22 12/17/23 Rx mg tablet #90 tabs irbesartan 300 mg tablet 300 mg PO DAILY #90 tabs 02/25/23 12/17/23 Rx lovastatin 40 mg tablet 40 mg PO DAILY #90 tabs 02/25/23 12/17/23 Rx metformin 500 mg tablet,extended 2,000 mg PO DAILY #360 tabs 02/25/23 12/17/23 Rx release 24 hr omeprazole 40 mg capsule,delayed 40 mg PO DAILY #90 caps 05/29/23 12/17/23 Rx release amlodipine 5 mg tablet 5 mg PO . q.a.m. #30 tabs 09/23/23 12/17/23 Rx semaglutide 1 mg/dose (4 mg/3 mL) 1 mg (0.75 mL) subcut WEEKLY #3 mL 12/09/23 12/17/23 Rx subcu
[2023-12-17 08:27] VITALS: BP 142/79; PULSE 98; RESP 18; O2SAT 95
[2023-12-17 08:37] VITALS: BP 122/78; PULSE 94; RESP 18; O2SAT 97
[2023-12-17 08:47] VITALS: BP 133/91; PULSE 89; RESP 18; O2SAT 96
== END 2023-12-17 08:52 | disposition home or self-care (01) ==
PROVIDERS: PCP Family Medicine; Visit Provider Internal Medicine Gastroenterology
PROC: 0DJD8ZZ Inspection of Lower Intestinal Tract, Via Natural or Artificial Opening Endoscopic (ICD-10-PCS; CPT 45378; principal; 2023-12-17 08:00)
DX: Z12.11 Encounter for screening for malignant neoplasm of colon (principal); D12.4 Benign neoplasm of descending colon; Z79.84 Long term (current) use of oral hypoglycemic drugs; Z79.85 Long-term (current) use of injectable non-insulin antidiabetic drugs; E11.9 Type 2 diabetes mellitus without complications; E78.5 Hyperlipidemia, unspecified; D64.9 Anemia, unspecified; G47.33 Obstructive sleep apnea (adult) (pediatric); K21.9 Gastro-esophageal reflux disease without esophagitis; E66.01 Morbid (severe) obesity due to excess calories; Z68.41 Body mass index [BMI] 40.0-44.9, adult; Z87.891 Personal history of nicotine dependence
CPT/HCPCS: 45385; 82948; 88305; J2704; J7120